=== PATIENT | male | born 1975 | race Two or more races ===

== ENCOUNTER 2021-02-18 21:28 | Emergency (ER) | payer MEDICAID, SELFPAY ==
--- NOTE | ~2021-02-18 | XR_ITS ---
EXAMINATION: XR FOOT, RIGHT CLINICAL INFORMATION: Puncture wound to right foot COMPARISON: None TECHNIQUE: AP, lateral, and oblique views of the right foot. FINDINGS: There has been amputation at the first digit with only the base of the proximal phalanx remaining. Flexion deformities are noted in other toes. On one view it appears that there is a rounded gas bubble present in the tissues distal to the amputated first toe. No bony destructive changes are seen. No retained foreign bodies are seen. XR/XR foot RT min 3V IMPRESSION: Status post amputation of first toe as described above. No retained foreign bodies seen. Please see discussion above regarding possible locule of air.
[2021-02-18 21:44] VITALS: BP 152/82; PULSE 98; RESP 18; TEMP 37.1; O2SAT 97; BMI 39.3
--- NOTE | 2021-02-18 21:55 | ED_ITS ---
HPI - Extremity Injury (Lower) General Chief Complaint: Extremity Injury, Lower Stated Complaint: FOOT INJ Time Seen by Provider: 02/18/21 21:54 Source: patient Mode of arrival: ambulatory Limitations: no limitations History of Present Illness complaint: foot injury Onset (ago): hour(s) (1pm today) Injury: Right: foot Type of Injury: puncture wound Place: home Severity: mild Relieving factors: nothing Exacerbating factors: nothing Context: stepped on nail (went through shoe but there was a partial puncture did not go fully in had small speck of blood on his sock) Other symptoms: none Related Data Previous Rx's Medication Instructions Recorded levofloxacin 500 mg PO DAILY #6 tab 02/18/21 Allergies Allergy/AdvReac Type Severity Reaction Status Date / Time No Known Allergies Allergy Verified 02/18/21 21:43 Review of Systems Review of Systems: Constitutional : No Fever, No Chills, Cardiovascular : No Chest Pain, No SOB Respiratory : No Dyspnea Gastrointestinal : No abdominal pain Musculoskeletal : No Joint Swelling Skin : No rash, positive skin puncture Neuro : No Weakness, No Numbness Psych : No SI/HI PMFSH Past Medical History Attestation statement: The following information was validated with the patient. Medical History (Updated 02/18/21 @ 22:11 by Taryn Barr DO) Amputated great toe Diabetes Hypertension PVD (peripheral vascular disease) Social History Social History (Updated 02/18/21 @ 22:06 by Taryn Barr DO) Patient Tobacco Use Status: Never used Tobacco Advance Directives: No Advance Directives Information Provided: Yes Physical Exam Vital Signs: Vital Signs: Last Vital Signs Temp 98.7 F 02/18/21 21:44 Pulse 98 02/18/21 21:44 Resp 18 02/18/21 21:44 BP 152/82 H 02/18/21 21:44 Pulse Ox 97 02/18/21 21:44 Body Mass Index 39.3 Appearance: Alert. Oriented X3. No acute distress. Eyes: Pupils equal, round and reactive to light. ENT: Pharynx normal. Neck: Normal inspection. Neck supple. CVS: Normal heart rate and rhythm. Pulses normal. Respiratory: No respiratory distress. Breath sounds normal. Abdomen: Soft and nontender. Skin: Skin warm and dry. Normal skin color. Normal skin turgor. Extremities: No lower extremity edema. R great toe amputation site healed, plantar surface 1st MTP joint just inferior small red abrasion noted skin appears intact, pinpoint Neuro: Oriented X 3. No motor deficit. No sensory deficit. MDM - Extremity Injury (Lower) MDM Narrative Medical decision making narrative: 45 yo male with DM, PVD, HTN s/p R great toe amputation here with nail small puncture through sole of shoe - no signs of infection will update Tdap, xray for FB, start on levofloxacin - unknown kidney function - lab ordered Lab Data Result diagrams: 02/18/21 22:21 Labs: Lab Results 02/18/21 Range/Units 22:21 Sodium 141 (135-145) mmol/L Potassium 4.3 (3.3-5.1) mmol/L Chloride 106 (96-108) mmol/L Carbon Dioxide 26 (22-29) mmol/L Anion Gap 13 (12-20) BUN 16 (9-16) mg/dL Creatinine 1.07 (0.5-1.4) mg/dL Estim Creat Clear Calc 125.7 Estimated GFR > 60 Random Glucose 125 H (60-115) mg/dL Calcium 9.6 (8.4-10.2) mg/dL Discharge Plan Discharge Clinical Impression: Puncture wound of foot Qualifiers: Encounter type: initial encounter Laterality: right Qualified Code(s): S91.331A - Puncture wound without foreign body, right foot, initial encounter Patient Disposition: Home, Self-Care Instructions: Tetanus (ED), Puncture Wound in the Foot (ED) Additional Instructions: return to ED for any worsening symptoms or concerns Prescriptions: New levofloxacin 500 mg tablet 500 mg PO DAILY Qty: 6 RF: 0 Referrals: Felicitas Francisco PA-C [Physician Circuit Recorder] - 2 weeks (as needed) Jhonny Armas MD [Physician] - 2 weeks Print Language: Faroese
[2021-02-18] MEDS: levoFLOXacin 500 MG TABLET PO (22:33)
[2021-02-18] MEDS: Diphth,Pertus(ACell),Tet Adult 0.5 ML SYRINGE IM (22:33)
[2021-02-18 22:54] LABS: Anion Gap 13 (12-20); Blood Urea Nitrogen 16 mg/dL (9-16); Calcium 9.6 mg/dL (8.4-10.2); Carbon Dioxide 26 mmol/L (22-29); Chloride 106 mmol/L (96-108); Creatinine Clr Calc Pharmacy 125.7; Estimated Glomerular Filt Rate > 60; Glucose Random 125 mg/dL (60-115); Potassium 4.3 mmol/L (3.3-5.1); Sodium 141 mmol/L (135-145)
== END 2021-02-18 23:28 | disposition home or self-care (01) ==
LOC: HO.ED 22:19
PROVIDERS: Emergency Provider Emergency Medicine; PCP Internal Medicine
DX: S91.331A Puncture wound without foreign body, right foot, initial encounter (principal); S90.811A Abrasion, right foot, initial encounter; W45.0XXA Nail entering through skin, initial encounter; Y93.9 Activity, unspecified; Y92.9 Unspecified place or not applicable; Y99.9 Unspecified external cause status; E11.9 Type 2 diabetes mellitus without complications; I10 Essential (primary) hypertension; Z89.411 Acquired absence of right great toe
CPT/HCPCS: 36415; 73630; 80048; 90471; 90715; 99283; 99284

== ENCOUNTER 2021-07-27 14:53 | Outpatient (REF) | payer MEDICAID, SELFPAY ==
[2021-07-27 16:43] LABS: Binax Internal Control QC Valid; Binax Lot number: 9864; Binax Now Covid-19 Ag Positive (Negative)
== END 2021-07-27 14:54 | disposition home or self-care (01) ==
LOC: HO.LAB 14:53
PROVIDERS: Visit Provider Internal Medicine
DX: Z20.822 Contact with and (suspected) exposure to COVID-19 (principal)
CPT/HCPCS: 36415; C9803

== ENCOUNTER 2021-09-04 10:20 | Emergency (ER) | payer MEDICAID, SELFPAY ==
--- NOTE | ~2021-09-04 | XR_ITS ---
EXAMINATION: XR FOOT, RIGHT CLINICAL INFORMATION: Pain in the toe. COMPARISON: None TECHNIQUE: AP, lateral, and oblique views of the right foot. FINDINGS: There is amputation of right big toe the and the proximal end of the first proximal phalanx. No soft tissue mass or collection seen. However there is soft tissue edema along the stump. No cortical erosion changes or periosteal thickening to suspect any osteomyelitis. There is no suspicion for abscess. Rest of the right foot is unremarkable. The ankle mortise and subtalar joints are normal. XR/XR foot RT min 3V IMPRESSION: The amputation stump first digit beyond the proximal end proximal phalanx. There is no suspicion for osteomyelitis. No bony erosive changes or periosteal elevation suspect osteomyelitis.
[2021-09-04 10:30] VITALS: BP 144/76; PULSE 96; RESP 16; TEMP 36.4; O2SAT 98; BMI 37.5
--- NOTE | 2021-09-04 11:02 | ED_ITS ---
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 and device test engineer Mode of arrival: ambulatory Limitations: no limitations History of Present Illness MD Complaint: extremity pain and extremity swelling Onset (ago): day(s) ( and Saturday) Pain Consistency: now resolved Location: right and toe (great toe amputation site) Quality: aching Radiation: none Relieving factors: nothing Exacerbating factors: other (started after wearing steel toed boot) Associated symptoms: other (states he feels it was swollen) 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) Related Data Previous Rx's Medication Instructions Recorded levofloxacin 500 mg tablet 500 mg PO DAILY #6 tab 02/18/21 Allergies Allergy/AdvReac Type Severity Reaction Status Date / Time No Known Allergies Allergy Verified 09/04/21 10:34 Review of Systems Verdana 4l Review of Systems: Verdana 4d Verdana 4d Constitutional : No Fever, No Chills ENT/Mouth : No Ear Pain, No Hoarseness, No sore throat Eyes: No Eye Pain, No Swelling, No Redness, No Foreign Body Cardiovascular : No Chest Pain, No SOB Respiratory : No Cough, No Dyspnea GastrointestinalGastrointestinal : No Nausea, No Vomiting, No Diarrhea, No abdominal Pain Genitourinary : No Dysuria, No Hematuria Musculoskeletal : positive joint pain, No Myalgias, pos Joint Swelling Skin : No Skin lacerations, No rash Neuro : No Weakness, No Numbness, No Loss of Consciousness, No Dizziness, No Headache Psych : No Anxiety/Panic, No Depression Heme/Lymph: no easy bruising, no Lymphadenopathy Endocrine : No Polyuria, No Polydipsia All other systems reviewed and are negative [facility] Past Medical History Attestation statement: The following information was validated with the patient. Medical History Amputated great toe Diabetes Hypertension PVD (peripheral vascular disease) Social History Social History Patient Tobacco Use Status: Never used Tobacco Advance Directives: No Advance Directives Information Provided: No Physical Exam Verdana 4l Vital Signs: Verdana 4d Verdana 4d Vital Signs: Verdana 4d Verdana 4Bd Last Vital Signs Verdana 4d Powertrain Calibration Engineer New 4d Powertrain Calibration Engineer New 4d Temp 97.6 F 09/04/21 10:30 Powertrain Calibration Engineer New 4d Pulse 96 09/04/21 10:30 Powertrain Calibration Engineer New 4d Resp 16 09/04/21 10:30 BP 144/76 H 09/04/21 10:30 Pulse Ox 98 09/04/21 10:30 BMI result Body Mass Index 37.5 Appearance: Alert. Oriented X3. No acute distress. Eyes: Pupils equal, round and reactive to light. ENT: Pharynx normal. Neck: Normal inspection. Neck supple. CVS: Normal heart rate and rhythm. Pulses normal. Respiratory: No respiratory distress. Breath sounds normal. Abdomen: Soft and non-tender. Skin: Skin warm and dry. Normal skin color. Normal skin turgor. Extremities: No lower extremity edema. No calf ttp R great toe amputation site skin c/d/i no erythema no warmth distal NV intact no fluctuance noted Neuro: Oriented X 3. No motor deficit. No sensory deficit. Course Course Course Narrative: xray negative stable for DC MDM - Extremity (Nontraumatic) MDM Narrative Medical decision making narrative: 46 yo male with hx of PVD, DM, s/p R great toe amputation 2015 for trauma comes in with pain at that site after working last week with [employer] toed boot - area was swollen today very minimal swelling no signs of infection distal NV intact will obtain xray. Gave him gauze to pad toe with. He was supposed to get prosthetic in [place] but never followed up. Will give work note and PCP information as he does not have one here. Discharge Plan Discharge Clinical Impression: Contusion Qualifiers: Encounter type: initial encounter Contusion area: foot Laterality: right Qualified Code(s): S90.31XA - Contusion of right foot, initial encounter Patient Disposition: Home, Self-Care Instructions: Bone Bruise (ED) Additional Instructions: return to ED for any worsening symptoms or concerns Prescriptions: No Action levofloxacin 500 mg tablet 500 mg PO DAILY Qty: 6 0RF Referrals: [facility] [Physician] - 2 days Stand Alone Forms: Work/School Release Print Language: Greenlandic
== END 2021-09-04 13:27 | disposition home or self-care (01) ==
PROVIDERS: Emergency Provider Emergency Medicine; PCP Internal Medicine
DX: S90.31XA Contusion of right foot, initial encounter (principal); X58.XXXA Exposure to other specified factors, initial encounter; E11.9 Type 2 diabetes mellitus without complications; I10 Essential (primary) hypertension; Z89.411 Acquired absence of right great toe; Y93.9 Activity, unspecified; Y92.9 Unspecified place or not applicable; Y99.9 Unspecified external cause status
CPT/HCPCS: 73630; 99283

== ENCOUNTER 2021-12-29 11:45 | Outpatient (REF) | payer MEDICAID, SELFPAY ==
[2021-12-29 12:04] LABS: MANUAL DIFF FLAG NO
[2021-12-29 13:09] LABS: Appearance Urine CLEAR; Color Urine YELLOW; Glucose Urine UA NEG (NEG); Leukocyte Esterase Urine NEG (NEG); Nitrite Urine NEG (NEG); Urine Blood NEG (NEG); Urine Ketones NEG (NEG); Urine Protein NEG (NEG-TRACE)
[2021-12-29 13:10] LABS: Basophils Percent Auto 0.3 % (0-2); Eosinophils Absolute Auto 0.1 X10*3/uL (0.0-0.4); Eosinophils Percent Auto 0.7 % (0-4); Hematocrit 45.7 % (42.0-52.0); Hemoglobin 14.9 g/dl (14.0-18.0); Imm Gran Abs Auto 0.04 X10*3/uL (0.00-0.03); Imm Gran Pct Auto 0.3 % (0.0-0.4); Lymphocytes Percent Auto 22.9 % (20-40); Mean Corpuscular HGB Conc 32.6 g/dl (31.0-36.0); Mean Corpuscular Hemoglobin 30.7 pg (27.0-33.0); Mean Platelet Volume 10.8 fL (9.4-12.4); Monocytes Absolute Auto 0.6 X10*3/uL (0.1-1.2); Monocytes Percent Auto 4.8 % (2-11); Neutrophils Absolute Auto 9.2 x10*3/uL (2.0-8.3); Platelet Count 242 X10*3/uL (160-400); Red Blood Count 4.86 X10*6/uL (4.60-5.80); White Blood Count 12.9 X10*3/uL (4.8-10.8)
[2021-12-29 13:42] LABS: Alanine Aminotransferase 30 U/L (0-40); Albumin Level 4.2 g/dL (3.5-5.0); Alkaline Phosphatase 106 U/L (39-117); Anion Gap 12 (12-20); Aspartate Amino Transferase 16 U/L (5-37); Bilirubin Total 0.7 mg/dL (0.0-1.0); Blood Urea Nitrogen 13 mg/dL (9-16); Carbon Dioxide 27 mmol/L (22-29); Chloride 104 mmol/L (96-108); Cholesterol 220 mg/dL; Estimated Glomerular Filt Rate > 60; Glucose Random 112 mg/dL (60-115); HDL Cholesterol 29 mg/dL; LDL Cholesterol Calculated 157 mg/dl; Potassium 4.3 mmol/L (3.3-5.1); Sodium 139 mmol/L (135-145); Triglycerides 174 mg/dL
[2021-12-29 14:04] LABS: Prostate Specific Antigen Scr 0.48 ng/mL (<0.05-4.0)
== END 2021-12-29 11:46 | disposition home or self-care (01) ==
LOC: HO.LAB 11:45
PROVIDERS: PCP Internal Medicine; Visit Provider Internal Medicine
DX: R35.1 Nocturia (principal); M16.11 Unilateral primary osteoarthritis, right hip; Z12.5 Encounter for screening for malignant neoplasm of prostate
CPT/HCPCS: 36415; 80053; 80061; 81003; 84153; 85025

== ENCOUNTER 2022-01-12 07:09 | Outpatient (REF) | payer MEDICAID, SELFPAY ==
--- NOTE | ~2022-01-12 | XR_ITS ---
EXAMINATION: XR PELVIS CLINICAL INFORMATION: Pain. COMPARISON: None TECHNIQUE: AP view of the pelvis. FINDINGS: The left hip joint space is normal. There are erosive changes and deformity right femoral head likely old avascular necrosis or injury. No fracture is visualized at this time. The SI joints are symmetrical. Rest the pelvis and the soft tissues are normal. XR/XR pelvis 1-2V IMPRESSION: Loss of right hip joint space with deformed right femoral head likely avascular necrosis or old injury. There is no acute fracture seen. Rest the pelvis and left hip are unremarkable.
== END 2022-01-12 07:10 | disposition home or self-care (01) ==
LOC: HO.HOSX 07:09
PROVIDERS: Visit Provider Orthopaedic Surgery
DX: M87.051 Idiopathic aseptic necrosis of right femur (principal); M54.16 Radiculopathy, lumbar region; R10.30 Lower abdominal pain, unspecified
CPT/HCPCS: 72170; 99202

== ENCOUNTER 2022-01-23 13:34 | Outpatient (REF) | payer MEDICAID, SELFPAY ==
[2022-01-23 14:15] LABS: COVID-19 Test Negative (Negative)
== END 2022-01-23 13:35 | disposition home or self-care (01) ==
LOC: HO.LAB 13:34
PROVIDERS: Visit Provider Internal Medicine
DX: Z20.822 Contact with and (suspected) exposure to COVID-19 (principal)
CPT/HCPCS: 87635; C9803

== ENCOUNTER 2022-03-02 12:11 | Outpatient (REF) | payer MEDICAID, SELFPAY ==
--- NOTE | ~2022-03-02 | XR_ITS ---
EXAMINATION: XR LUMBOSACRAL SPINE CLINICAL INFORMATION: Spondylosis without myelopathy or radiculopathy. COMPARISON: None TECHNIQUE: AP and lateral views of the lumbar spine and lateral view of the lumbosacral junction. FINDINGS: Vertebral body heights are normal. At L5-S1, there is a 3 mm retrolisthesis. The remaining lumbar disc spaces are well-maintained. No acute fracture or spondylolisthesis is seen. There is multi-level mild lumbar spondylosis. The posterior elements are intact. The paravertebral soft tissues are unremarkable. XR/XR lumbar spine 2-3V IMPRESSION: 1. There is no acute fracture or spondylolisthesis. 2. There is mild degenerative disc disease at L5-S1. 3. There is multi-level mild lumbar spondylosis.
== END 2022-03-02 12:12 | disposition home or self-care (01) ==
LOC: HO.XRAY 12:11
PROVIDERS: PCP Internal Medicine; Visit Provider Nurse Practitioner Family
DX: M47.816 Spondylosis without myelopathy or radiculopathy, lumbar region (principal); M87.051 Idiopathic aseptic necrosis of right femur; M25.551 Pain in right hip; G89.29 Other chronic pain
CPT/HCPCS: 72100; 99202

== ENCOUNTER 2022-08-29 15:48 | Outpatient (REF) | payer MEDICAID, SELFPAY ==
[2022-08-29 16:53] LABS: Cholesterol 221 mg/dL; HDL Cholesterol 24 mg/dL; Triglycerides 428 mg/dL
== END 2022-08-29 15:49 | disposition home or self-care (01) ==
LOC: HO.LAB 15:48
PROVIDERS: PCP Internal Medicine; Visit Provider Internal Medicine
DX: E78.00 Pure hypercholesterolemia, unspecified (principal); M25.551 Pain in right hip
CPT/HCPCS: 36415; 80061; 86140

== ENCOUNTER 2023-01-14 14:27 | Outpatient (REF) | payer MEDICAID, SELFPAY ==
--- NOTE | ~2023-01-14 | XR_ITS ---
EXAMINATION: XR LUMBOSACRAL SPINE CLINICAL INFORMATION: Low back pain. COMPARISON: 03/02/2022 TECHNIQUE: Three views of the lumbosacral spine. FINDINGS: There are 5 [id number] lumbar vertebra. There is mild scoliosis convex right. There is mild narrowing of the L4-L5 and L5-S1 disc spaces. There is facet arthropathy present on the left at L4-L5 and bilaterally at L5-S1. There is increased sclerosis seen involving the inferior sacroiliac joints, left greater than right. Pedicles appear intact. No acute fracture or spondylolisthesis identified. On provided imaging, I cannot rule out an L5 pars defects. XR/XR lumbar spine 2-3V IMPRESSION: Lumbar spondylosis as described above without evidence of acute fracture or significant spondylolisthesis.
== END 2023-01-14 14:28 | disposition home or self-care (01) ==
LOC: HO.XRAY 14:27
PROVIDERS: PCP Internal Medicine; Visit Provider Internal Medicine
DX: M54.50 Low back pain, unspecified (principal)
CPT/HCPCS: 72100

== ENCOUNTER 2025-02-14 20:36 | Emergency (ER) | payer SELFPAY ==
--- NOTE | ~2025-02-14 | CT_ITS ---
CLINICAL HISTORY: Headache, abnormal sensations left upper and lower CT head without contrast Comparison: None provided Findings: No intracranial mass, midline shift, hydrocephalus, or acute hemorrhage. Mild chronic ischemic white matter disease without volume loss. 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 No acute process in sinuses or mastoids. No acute bony abnormality. Impression: No acute intracranial process This document has been electronically signed by: Alexy Guillermo MD on 02/14/2025 23:40:20
--- NOTE | 2025-02-14 20:45 | ED_ITS ---
HPI - General Adult General Chief complaint: General Medical Stated complaint: headache, tingling/tightness in left of arm/leg Time Seen by Provider: 02/14/25 21:58 Source: patient and home care specialist Mode of arrival: ambulatory Limitations: language barrier History of Present Illness ED Provider: HPI narrative: 49-year-old male presenting with headache, reported tingling of the left arm and left leg along with a headache at 04:30 in the morning, since then has had 3 more episodes of involuntary like movements in his left arm and left leg, headaches and some resolved approximately 2/10, no chest pain reported no acute shortness of breath no cough no neck stiffness no trauma. No visual changes. Related Data Previous Rx's ?Medication ?Instructions ?Recorded levofloxacin 500 mg tablet 500 mg PO DAILY #6 tabs shoe lift 3 cm in right shoe #1 ea 01/16/22 meloxicam 7.5 mg tablet 7.5 mg PO BID #60 tabs 03/02 tizanidine 4 mg tablet 4 mg PO BID PRN muscle spast icity 03/02/22 #40 tabs Allergies Allergy/AdvReac Type Severity Reaction Status Date / Time No Known Allergies Allergy Verified 02/14/25 20:53 Review of Systems 2 Constitutional: Constitutional: Reports as per [facility] Past Medical History Medical History Amputated great toe Diabetes Hypertension PVD (peripheral vascular disease) Social History Social History Alcohol intake: current Alcohol type: beer and hard liquor Patient Tobacco Use Status: Never used Tobacco Smoked in Last 30 Days: Yes Use of substances other than those prescribed or required for medical reasons: No Advance Directives: No Advance Directives Information Provided: No Physical Exam ED Vital Signs: Vital Signs - 24 hr 02/14/25 20:46 02/14/25 21:19 02/14/25 22:26 Temperature 98.6 F 97.7 F 97.7 F Pulse Rate 91 86 82 Respiratory Rate 20 16 16 Blood Pressure 145/84 H 166/85 H 150/76 H Pulse Oximetry 99 97 97 Oxygen Delivery Method Room Air Room Air Room Air BMI result Body Mass Index 36.6 Const Other: * Gen: ?Overall well-appearing patient * HEENT: PERRLA, EOMI, MMM, * Neck: Supple, no LAD * CV: RRR, no obvious murmurs appreciated * Resp: ?No wheezing rales rhonchi no stridor moving air well * Abd: ?Bowel sounds are present, no tenderness no rebound no rigidity * MSK: FROM, strength 5/5 all extremities * Skin: Warm, dry, intact, * Neuro: ?Alert and oriented x3, moving upper and lower extremities symmetrically, no obvious facial asymmetry noted Course Course Course Narrative: Chely Aguilar GREENSKEEPER 02/14 2046 This is a rapid medical exam. Deferred additional HPI, ROS, PE to primary provider. 49 yo male with no known medical history here with complaints of episodes of cramping/involuntary movement/numbness of left arm/leg since 430am. None at this time. Initially had a ZABALA which is now resolved. Will obtain labs. VSS Medical Decision Making Medical Decision Making MDM Narrative: Presenting with headache follow up by some neurologic symptoms has since improved, we will make sure that arm tingling is also not related to ACS, otherwise he is slightly hypotensive but otherwise vital signs are reassuring, no meningismus no fevers to suspect underlying infectious etiology, he is not in the age to suspect temporal arteritis, no evidence for acute item closure glaucoma, we will obtain CT to make sure no underlying spontaneous bleed or mass otherwise anticipating discharge Differential Diagnosis Differential Diagnoses: The differential diagnosis associated with the presentation includes Stroke, migraine, complex migraine, ACS, TIA Admission/Observation Consideration of admission/observation: Escalation of care including admission/observation considered 2022 Emergency Medicine Coding Guide from [email or web address] on 02/14/2025 All calculations should be rechecked by clinician prior to use RESULT SUMMARY: 4 Estimated Level of Service Problems: Moderate (4) Risk: Moderate (4) Data: Extensive (5) NARRATIVE MDM: This patient's problem complexity is Moderate as patient: has a new undiagnosed problem with uncertain prognosis but that could be serious. This patient's risk is Moderate due to: overall presentation requiring evaluation for a potentially Moderate-risk process. This patient's data complexity is Extensive due to: -multiple tests ordered/reviewed -independent interpretation of imaging or EKG INPUTS: Number and Complexity ?> 5 = 4: undiagnosed new problem, uncertain outcome (e) Risk level ?> 3 = Moderate Tests ordered ?> 2 = 2 Tests results reviewed (excluding labs) ?> 2 = 2 Prior external notes reviewed ?> 0 = 0 Assessment requiring and independent historian ?> 0 = No Independent interpretation of tests ?> 1 = Yes Discussed management/test interpretation w/external professional ?> 0 = No Lab Data MDM Lab Attestation statement: I reviewed the patient's lab results. 02/14/25 20:57 02/14/25 20:57 Labs: Lab Results 02/14/25 Range/Units 20:57 WBC 13.8 H (4.8-10.8) X10*3/uL RBC 4.15 L (4.60-5.80) X10*6/uL Hgb 13.5 L (14.0-18.0) g/dl Hct 39.5 L (42.0-52.0) % MCV 95.2 (80.0-98.0) fL MCH 32.5 (27.0-33.0) pg MCHC 34.2 (31.0-36.0) g/dl RDW 12.3 (11.0-16.0) % Plt Count 239 (160-400) X10*3/uL MPV 9.9 (9.4-12.4) fL Immature Gran % (Auto) 0.4 (0.0-0.4) % Neut % (Auto) 61.3 (45-73) % Lymph % (Auto) 30.4 (20-40) % [place] % (Auto) 6.6 (2-11) % Eos % (Auto) 0.9 (0-4) % Baso % (Auto) 0.4 (0-2) % Lymph # (Auto) 4.2 (1.2-4.9) X10*3/uL [place] # (Auto) 0.9 (0.1-1.2) X10*3/uL Eos # (Auto) 0.1 (0.0-0.4) X10*3/uL Baso # (Auto) 0.1 (0.0-0.2) X10*3/uL Abs Immat Gran (auto) 0.05 H (0.00-0.03) X10*3/uL Absolute Neuts (auto) 8.4 H (2.0-8.3) x10*3/uL Absolute Nucleated RBC 0.000 (0.0-0.012) X10*3/uL Nucleated RBC % (auto) 0.0 (0.0-0.2) /100WBC Smear Tech's Comments VERIFIED Sodium 144 (135-145) mmol/L Potassium 4.0 (3.3-5.1) mmol/L Chloride 114 H (96-108) mmol/L Carbon Dioxide 21 L (22-29) mmol/L Anion Gap 13 (12-20) BUN 21 H (9-16) mg/dL Creatinine 1.13 (0.5-1.4) mg/dL Estim Creat Clear Calc 109.9 Estimated GFR > 60 Random Glucose 125 H (60-115) mg/dL Calcium 8.9 D (8.4-10.2) mg/dL Magnesium 2.0 (1.6-2.6) mg/dL Total Bilirubin 0.3 (0.0-1.0) mg/dL Direct Bilirubin 0.1 (0.0-0.5) mg/dL AST 20 (5-37) U/L ALT 28 (0-40) U/L Alkaline Phosphatase 91 (39-117) U/L Total Protein 7.1 (6.5-8.0) g/dL Albumin 4.3 (3.5-5.0) g/dL Independent Interpretation I performed an independent interpretation of an: CT Scan (No obvious intracranial pathology subarachnoid hemorrhage or masses, will await official report) Radiology Impression Discussion of test interpretation with radiology: I have reviewed the radiologist's reading. (Impression: No acute intracranial process) Discharge Plan Discharge Clinical Impression: Tingling of left upper extremity Headache Qualifiers: Headache type: unspecified Headache chronicity pattern: unspecified pattern I ntractability: not intractable Qualified Code(s): R51.9 - Headache, unspecified Patient Disposition: Home, Self-Care Additional Instructions: I am not sure why you had tingling in your left arm and left leg and these abnormal movements, , you did have a chest x-ray that was unremarkable, blood work without any changes that are concerning, and you had a CT of the brain did not did not reveal anything worrisome, I would like you to follow up with the primary care physician for re-evaluation, and I also recommend workup for sleep apnea Any other issues concerns come back to the ER Prescriptions: No Action (DME) shoe lift 3 cm in right shoe See Rx Instructions .Route .MEDSUPPLY Qty: 1 0RF Rx Instructions: As directed levofloxacin 500 mg tablet 500 mg PO DAILY Qty: 6 0RF tizanidine 4 mg tablet 4 mg PO BID PRN (Reason: muscle spasticity) Qty: 40 0RF meloxicam 7.5 mg tablet 7.5 mg PO BID Qty: 60 0RF Rx Instructions: start with 1 pill AM x 2 weeks then take 1 pill AM and 1 pill PM Print Language: Occitan
[2025-02-14 20:46] VITALS: BP 145/84; PULSE 91; RESP 20; TEMP 37; O2SAT 99; BMI 36.6
[2025-02-14 21:11] LABS: Hematocrit 39.5 % (42.0-52.0); Hemoglobin 13.5 g/dl (14.0-18.0); Imm Gran Abs Auto 0.05 X10*3/uL (0.00-0.03); Imm Gran Pct Auto 0.4 % (0.0-0.4); Lymphocytes Absolute Auto 4.2 X10*3/uL (1.2-4.9); MANUAL DIFF FLAG SCAN; Mean Corpuscular HGB Conc 34.2 g/dl (31.0-36.0); Mean Corpuscular Hemoglobin 32.5 pg (27.0-33.0); Mean Corpuscular Volume 95.2 fL (80.0-98.0); NRBC Abs Auto 0.000 X10*3/uL (0.0-0.012); NRBC Pct Auto 0.0 /100WBC (0.0-0.2); Platelet Count 239 X10*3/uL (160-400); Red Blood Count 4.15 X10*6/uL (4.60-5.80); SCAN SMEAR FLAG 1; White Blood Count 13.8 X10*3/uL (4.8-10.8)
[2025-02-14 21:17] LABS: Alanine Aminotransferase 28 U/L (0-40); Albumin Level 4.3 g/dL (3.5-5.0); Alkaline Phosphatase 91 U/L (39-117); Anion Gap 13 (12-20); Aspartate Amino Transferase 20 U/L (5-37); Blood Urea Nitrogen 21 mg/dL (9-16); Calcium 8.9 mg/dL (8.4-10.2); Carbon Dioxide 21 mmol/L (22-29); Chloride 114 mmol/L (96-108); Creatinine Clr Calc Pharmacy 109.9; Estimated Glomerular Filt Rate > 60; Magnesium 2.0 mg/dL (1.6-2.6); Potassium 4.0 mmol/L (3.3-5.1); Sodium 144 mmol/L (135-145); Total Protein 7.1 g/dL (6.5-8.0)
[2025-02-14 21:19] VITALS: BP 166/85; PULSE 86; RESP 16; TEMP 36.5; O2SAT 97
--- NOTE | 2025-02-14 21:21 | PC.NURSE ---
Patient presents to ED c/o involuntary upper and lower left extremity movement. Patient reports having moments of numbness and tingling going down both the entire left arm and leg lasting maybe 10 minutes. The extremities would also intermittently contract and release. Denies numbness and tingling at this time but did report having an episode right before coming to ED. Patient hypertensive 166/85, all other VSS and up to date. Provider in to see patient. Plan of care on going
--- NOTE | 2025-02-14 22:20 | ECG_ITS ---
Test Reason : ARM TINGLING Blood Pressure : */* mmHG Vent. Rate : 80 BPM Atrial Rate : 80 BPM P-R Int : 138 ms QRS Dur : 96 ms QT Int : 388 ms P-R-T Axes : 48 20 2 degrees QTcB Int : 447 ms Normal sinus rhythm Nonspecific T wave abnormality Abnormal ECG No previous ECGs available Referred By: Kiko Marte Electronically Signed By: Denton Mandujano
[2025-02-14 22:26] VITALS: BP 150/76; PULSE 82; RESP 16; TEMP 36.5; O2SAT 97
[2025-02-15] VITALS: BP 148/71; PULSE 80; RESP 19; TEMP 36.5; O2SAT 99
[2025-02-15 00:38] VITALS: BP 148/71; PULSE 80; RESP 19; TEMP 36.5; O2SAT 99
== END 2025-02-15 00:40 | disposition home or self-care (01) ==
PROVIDERS: Nurse Practitioner Family; Emergency Provider Emergency Medicine; PCP Internal Medicine
DX: R51.9 Headache, unspecified (principal); R20.2 Paresthesia of skin; R94.31 Abnormal electrocardiogram [ECG] [EKG]; I95.9 Hypotension, unspecified; Z79.899 Other long term (current) drug therapy
CPT/HCPCS: 36415; 70450; 80048; 80076; 83735; 85025; 93005; 99284

== ENCOUNTER → 2025-02-14 22:20 | Outpatient (BNV) | payer SELFPAY | PROVIDERS: Emergency Provider Emergency Medicine; PCP Internal Medicine; Visit Provider Internal Medicine Cardiovascular Disease | DX: R94.31 Abnormal electrocardiogram [ECG] [EKG] (principal); R20.2 Paresthesia of skin | CPT/HCPCS: 93010 ==

== ENCOUNTER → 2025-02-14 22:20 | Outpatient (BNV) | payer SELFPAY | PROVIDERS: Emergency Provider Emergency Medicine; PCP Internal Medicine; Visit Provider Radiology Diagnostic Radiology | DX: R51.9 Headache, unspecified (principal); R20.2 Paresthesia of skin | CPT/HCPCS: 70450 ==

== ENCOUNTER 2025-02-25 09:43 | Inpatient (IN) | payer MEDICAID, SELFPAY ==
--- NOTE | 2025-02-25 | ECG_ITS ---
Test Reason : dizziness Blood Pressure : */* mmHG Vent. Rate : 75 BPM Atrial Rate : 75 BPM P-R Int : 144 ms QRS Dur : 98 ms QT Int : 418 ms P-R-T Axes : 33 5 -2 degrees QTcB Int : 466 ms Normal sinus rhythm Nonspecific T wave abnormality Prolonged QT Abnormal ECG When compared with ECG of 14-Feb-2025 22:41, No significant change was found Referred By: Jordan Al Electronically Signed By: CHANA MAHARAJ MD
--- NOTE | ~2025-02-25 | CT_ITS ---
EXAMINATION: CT ANGIOGRAM HEAD AND NECK CLINICAL INFORMATION: Acute CVA in the posterior right frontal lobe and right basal ganglion COMPARISON: MRI from yesterday.. TECHNIQUE: Noncontrast axial imaging of the head was performed. This was followed by test bolus sequences and head and neck intravenous bolus administration of 70mL of Omnipaque 350. Helical imaging was performed in the axial plane from the aortic arch to the skull vertex. The data was processed at the cardiac cath lab radiology technologist's workstation for generation of MIP sequences. Angled MIPs and volume rendered reformatted images were also generated at an offline 3D workstation. Stenoses are assessed in accordance with NASCET criteria unless otherwise indicated. This CT examination was performed using dose optimization techniques as appropriate, variously including the following: *Automated exposure control *Adjustment of mA and/or kV according to patient size (this includes techniques or standardized protocols for targeted exams where dose is matched to indication/reason for exam; i.e. extremities or head) *Use of iterative reconstruction technique DLP: 1789 mGy*cm FINDINGS: NONCONTRAST HEAD CT: Low-attenuation is visible in the right basal ganglion and posterior right frontal lobe. There is chronic encephalization the medial right occipital lobe. There is no intracranial hemorrhage. NECK CTA: -AORTIC ARCH: Normal in caliber. Three-vessel branching pattern. -GREAT VESSEL ORIGINS: Widely patent. No stenosis. -RIGHT COMMON CAROTID ARTERY: Normal in course and caliber to the level of the bifurcation. -CERVICAL RIGHT INTERNAL CAROTID ARTERY: Normal opacification without significant stenosis or occlusion. Mild hard plaque is present at the medial wall of the carotid bulb. -LEFT COMMON CAROTID ARTERY: Normal in course and caliber to the level of the bifurcation. -CERVICAL LEFT INTERNAL CAROTID ARTERY: Normal opacification without focal stenosis or occlusion. . -CERVICAL RIGHT VERTEBRAL ARTERY: Codominant. Normal in course and caliber into the skull base. -CERVICAL LEFT VERTEBRAL ARTERY: Filling of the left vertebral artery becomes threadlike through a short segment between mid C6 and mid C7. The diameter decreases to at least 1 mm. The more distal opacified artery measures 3 mm diameter consistent with at least 67% stenosis. OTHER, SOFT TISSUES: -No lymphadenopathy or mass. No abnormal fluid collection or soft tissue swelling. -Normal thyroid. -Imaged superior mediastinal structures normal. -Imaged lung apices clear. CTA OF THE BRAIN: -INTRACRANIAL INTERNAL CAROTID ARTERIES: No focal stenosis or occlusion. -RIGHT ANTERIOR CEREBRAL ARTERY: Normal A1 segment.. Normal arborization of the distal segments. -LEFT ANTERIOR CEREBRAL ARTERY: Normal A1 segment.. Normal arborization of the distal segments. -ANTERIOR COMMUNICATING ARTERY: Normal. -RIGHT MIDDLE CEREBRAL ARTERY: Demonstrates segment decreases to a diameter of 1.1 mm. More distally the lumen diameter is 2.3 mm consistent with 55% short segment stenosis. Normal bifurcation. Normal arborization of the distal segments. -LEFT MIDDLE CEREBRAL ARTERY: Normal M1 segment of the MCA without focal stenosis or occlusion. Normal bifurcation. Normal arborization of the distal segments. -RIGHT VERTEBRAL ARTERY V4: Normal in course and caliber. Normal PICA branch. -LEFT VERTEBRAL ARTERY V4: Normal in course and caliber. Normal PICA branch. -BASILAR ARTERY: Normal without focal stenosis or occlusion. Normal appearance of the proximal superior cerebellar arteries. Normal basilar tip. -RIGHT POSTERIOR CEREBRAL ARTERY: Normal P1 segment. Normal opacification of the distal PHOTOGRAVURE PRESS OPERATOR segments. -LEFT POSTERIOR CEREBRAL ARTERY: The P1 segment is diminutive. origin of the PHOTOGRAVURE PRESS OPERATOR with robust opacification of the posterior communicating artery. Normal opacification of the distal PHOTOGRAVURE PRESS OPERATOR segments. -POSTERIOR COMMUNICATING ARTERIES: Thread like. Normal opacification of the superior sagittal, straight, transverse, and right sigmoid sinus. There is lack of filling of the left sigmoid sinus. CT/CT angio head neck IMPRESSION: NONCONTRAST HEAD CT: Acute/subacute posterior right frontal and right basal ganglia infarct. CTA NECK: There is a hemodynamically significant stenosis of left vertebral artery at the level of C6-7 measuring at least 67%. CTA HEAD: Short focal 55% stenosis of the M1 division of the right MCA. Dr. Olsen notified via [place] Lack of filling of the left sigmoid sinus of uncertain significance. Contrast was injected from the left side and there is retrograde flow of contrast up the the mid left internal jugular vein which could be restricting outflow on that side. If there is concern for thrombosis, consider dedicated head CT venogram. Electronically signed by: Reymundo Henderson MD 02/26/2025 03:20 PM EDT
--- NOTE | ~2025-02-25 | US_ITS ---
EXAMINATION: US EXTRACRANIAL CAROTID DUPLEX, BILATERAL CLINICAL INFORMATION: CVA COMPARISON: None available. TECHNIQUE: Real-time ultrasound and Doppler techniques (integrating B-mode 2-D vascular images, Doppler spectral analysis and color-flow Doppler imaging) were utilized to interrogate the extracranial carotid arteries, the vertebral arteries and proximal subclavian arteries bilaterally. The degree of stenosis is determined by criteria similar to NASCET. FINDINGS: Right Side: 1. There is mild atherosclerotic plaque seen in the bifurcation/proximal ICA region. 2. The common carotid artery PSV proximally is 141 cm/s and distally 66 cm/s. 3. The proximal internal carotid artery velocities are 58 cm/s systolic and 20 cm/s diastolic. 4. The proximal external carotid artery PSV is 79 cm/s. 5. The vertebral artery shows antegrade flow. 6. The subclavian artery waveforms are triphasic. ICA:CCA = 0.4 Left Side: 1. There is no atherosclerotic plaque seen in the bifurcation/proximal ICA region. 2. The common carotid artery PSV proximally is 140 cm/s and distally 90 cm/s. 3. The proximal internal carotid artery velocities are 60 cm/s systolic and 19 cm/s diastolic. 4. The proximal external carotid artery PSV is 93 cm/s. 5. The vertebral artery shows antegrade flow. 6. The subclavian artery waveforms are biphasic. ICA:CCA = 0.4 US/US carotid duplex BI IMPRESSION: 1. RIGHT: No hemodynamically significant stenosis. Mild plaque is present in the carotid bulb. 2. LEFT: No hemodynamically significant stenosis. Electronically signed by: Reymundo Henderson MD 02/25/2025 04:36 PM EDT
--- NOTE | ~2025-02-25 | CT_ITS ---
EXAMINATION: CT HEAD WITHOUT IV CONTRAST HISTORY: Left facial droop x1 week, rule out stroke. TECHNIQUE: Unenhanced helical CT of the head was performed per standard departmental protocol. Coronal and sagittal reformats of the head were also evaluated. One or more of the following techniques was used for dose reduction: Automated exposure control, adjustment of the mA and/or kV according to patient size, use of iterative reconstruction technique. DLP: 731 mGy-cm COMPARISON: Comparison is made with the prior examination dated 02/14/2025. FINDINGS: BRAIN: There is new geographic hypodensity in the right frontal lobe and right basal ganglia, consistent with an evolving infarct. Again seen is an old infarct in the right occipital lobe and an old lacunar infarct in the left basal ganglia. There is no mass effect or midline shift. No intra- or extra-axial fluid collections are identified. SINUSES: The visualized paranasal sinuses are clear. The mastoid air cells and middle ear cavities are well pneumatized. ORBITS: The visualized orbits are unremarkable. BONES/SOFT TISSUES: The extracranial soft tissues are unremarkable. The calvarium is intact. No suspicious lytic or sclerotic lesions. CT/CT head/brain wo IV con IMPRESSION: Evolving right frontal and right basal ganglia infarcts. These findings were discussed with Dr. Al in the emergency room on 02/25/2025 at 11:21 AM. Electronically signed by: Solomon Nicholas MD 02/25/2025 11:20 AM EDT
--- NOTE | ~2025-02-25 | MR_ITS ---
CLINICAL HISTORY: cva MRI Brain Without Contrast: Comparison: CT 02/25/2025. CT 02/14/2025. Findings: There is restricted diffusion with acute core infarction involving right basal ganglia, right sylvian fissure subcortical white matter and a 3 cm segment of right frontal lobe cortex and subcortical white matter. Mass effect: No shift in midline structures Intracranial bleeding: No intraparenchymal bleeding or abnormal extra axial blood fluid collections Pituitary: Normal in size Visualized sinuses: There is fluid filling inferior left maxillary sinus floor Orbital structures: Unremarkable Calvarium: There is no abnormal meningeal thickening or nodularity Impression: Acute infarction in right MCA territory Left maxillary sinusitis. This document has been electronically signed by: Javier Atwood MD on 02/25/2025 18:03:25
[2025-02-25 09:46] VITALS: BP 158/76; PULSE 84; RESP 17; TEMP 36.8; O2SAT 97; BMI 35.1
[2025-02-25 10:00] VITALS: BP 133/74; PULSE 66; RESP 21; TEMP 36.7; O2SAT 97
--- NOTE | 2025-02-25 10:02 | ED_ITS ---
HPI - Neuro Symptoms/Deficit General Chief Complaint: Neuro Symptoms/Deficit Stated Complaint: Tingling/numbness L arm Time Seen by Provider: 02/25/25 10:02 Source: patient Mode of arrival: ambulatory Limitations: language barrier ([place] speaking only, [facility] [place] sales and service supervisor used[place] History of Present Illness ED Provider: Dr. Jordan Al HPI Narrative: 49-year-old male with a history of diabetes mellitus, hypertension, peripheral vascular disease who presents emergency department for evaluation of left facial droop, difficulty talking x1 week. The patient was seen in the emergency department on 02/14/2025 for evaluation of headache, tingling in his toes of the left arm , left leg and involuntary movement of his left upper extremity.. Patient's workup included a CT scan of the brain which was unremarkable at that time. Patient states over the last week he has had increased difficulty with speaking in his noticed increased drooling. His friends noticed that he had a change in his face and he had a slight facial droop. Patient states the left side of his face is numb. He denied weakness in his upper and lower extremities. He denied recurrence of his headache. Related Data Previous Rx's ?Medication ?Instructions ?Recorded levofloxacin 500 mg tablet 500 mg PO DAILY #6 tabs shoe lift 3 cm in right shoe #1 ea 01/16/22 meloxicam 7.5 mg tablet 7.5 mg PO BID #60 tabs 03/02 tizanidine 4 mg tablet 4 mg PO BID PRN muscle spast icity 03/02/22 #40 tabs Allergies Allergy/AdvReac Type Severity Reaction Status Date / Time No Known Allergies Allergy Verified 02/25/25 09:48 [facility] Past Medical History Medical History Amputated great toe Diabetes Hypertension PVD (peripheral vascular disease) Social History Social History Unable to assess alcohol history related to: Unknown Alcohol intake: current Alcohol type: beer and hard liquor Patient Tobacco Use Status: Never used Tobacco Smoked in Last 30 Days: No Use of substances other than those prescribed or required for medical reasons: Unknown Advance Directives: No Advance Directives Information Provided: Yes Do you have a plan to hurt others: No Plan Physical Exam 2 Vital Signs: Vital Signs: Last Vital Signs Temp 98.0 F 02/25/25 12:00 Pulse 72 02/25/25 12:00 Resp 14 02/25/25 12:00 BP 134/90 H 02/25/25 12:00 Pulse Ox 97 02/25/25 12:00 O2 Del Method Room Air 02/25/25 12:00 BMI result Body Mass Index 35.1 Exam: General: Awake, alert in no distress Head: Normocephalic, atraumatic EENT: PERRL, Lids normal, sclera normal, conjunctiva normal, nose normal , ears normal, throat without erythema or exudates Neck: Supple, no adenopathy Lung: breath sounds symmetric, no wheezing, rales or rhonchi Chest: symmetric movement, nontender Heart: regular rate and rhythm, normal S1, S2 no murmurs or rubs Abdomen: soft, non-tender, nondistended, normal bowel sounds Back: no vertebral tenderness, no CVAT Extremities: no deformities, moves all extremities symmetrically Neuro: General: ?Awake, alert, oriented, normal speech Cranial nerves: ?Cranial nerves left facial droop sparing forehead Strength: ?Moves all extremities symmetrically, strength 5/5 Cerebellar: ?Good syqpfi-am-[id number]-to-finger, good rapid finger movement, normal heel to bacon Psych: Pleasant, cooperative Medical Decision Making Medical Decision Making MDM Narrative: 49-year-old male with a history of diabetes mellitus, hypertension, peripheral vascular disease who presents emergency department for evaluation of left facial droop, difficulty talking x1 week. The patient was seen in the emergency department on 02/14/2025 for evaluation of headache, tingling in his toes of the left arm , left leg and involuntary movement of his left upper extremity.. Patient's workup included a CT scan of the brain which was unremarkable at that time. Patient states over the last week he has had increased difficulty with speaking in his noticed increased drooling. His friends noticed that he had a change in his face and he had a slight facial droop. Patient states the left side of his face is numb. He denied weakness in his upper and lower extremities. He denied recurrence of his headache.Vital signs revealed an elevated blood pressure otherwise unremarkable. Physical examination did reveal left facial droop which spares the forehead. NIH stroke scale was 1 Differential diagnosis: ?Includes but is not limited to Kaye's palsy, stroke, intracranial bleed, anemia, electrolyte abnormalities Course: 13:24 My independent interpretation patient's laboratory evaluation is as follows: CBC was normal. Glucose elevated 122. CT scan of the brain without IV contrast was concerning for an evolving right frontal and right basal ganglion infarct. Given this finding, the patient will need to be admitted for further workup of his stroke. Patient was able to pass a swallow test and he was given aspirin 324 mg orally. Given the fact that these symptoms are 1-week-old, the patient is not a TNK candidate. 13:44 I did discuss the patient's presentation over tiger text with the covering hospitalist, Dr. Olsen and the patient will be admitted for further treatment. Admission/Observation Consideration of admission/observation: Escalation of care including admission/observation considered (Yes) Consult Healthcare Provider Management of the patient was discussed with: Hospitalist Lab Data MDM Lab Attestation statement: I reviewed the patient's lab results. 02/25/25 10:16 02/25/25 10:16 Labs: Lab Results 02/25/25 Range/Units 10:16 WBC 10.2 (4.8-10.8) X10*3/uL RBC 4.74 (4.60-5.80) X10*6/uL Hgb 15.0 (14.0-18.0) g/dl Hct 44.6 (42.0-52.0) % MCV 94.1 (80.0-98.0) fL MCH 31.6 (27.0-33.0) pg MCHC 33.6 (31.0-36.0) g/dl RDW 12.0 (11.0-16.0) % Plt Count 246 (160-400) X10*3/uL MPV 10.2 (9.4-12.4) fL Immature Gran % (Auto) 0.2 (0.0-0.4) % Neut % (Auto) 67.2 (45-73) % Lymph % (Auto) 26.2 (20-40) % [place] % (Auto) 5.8 (2-11) % Eos % (Auto) 0.3 (0-4) % Baso % (Auto) 0.3 (0-2) % Lymph # (Auto) 2.7 (1.2-4.9) X10*3/uL [place] # (Auto) 0.6 (0.1-1.2) X10*3/uL Eos # (Auto) 0.0 (0.0-0.4) X10*3/uL Baso # (Auto) 0.0 (0.0-0.2) X10*3/uL Abs Immat Gran (auto) 0.02 (0.00-0.03) X10*3/uL Absolute Neuts (auto) 6.8 (2.0-8.3) x10*3/uL Absolute Nucleated RBC 0.020 H (0.0-0.012) X10*3/uL Nucleated RBC % (auto) 0.2 (0.0-0.2) /100WBC Sodium 144 (135-145) mmol/L Potassium 3.9 (3.3-5.1) mmol/L Chloride 110 H (96-108) mmol/L Carbon Dioxide 24 (22-29) mmol/L Anion Gap 14 (12-20) BUN 15 (9-16) mg/dL Creatinine 0.88 (0.5-1.4) mg/dL Estim Creat Clear Calc 138.1 Estimated GFR > 60 Random Glucose 122 H (60-115) mg/dL Calcium 9.3 (8.4-10.2) mg/dL Total Bilirubin 0.8 (0.0-1.0) mg/dL AST 22 (5-37) U/L ALT 30 (0-40) U/L Alkaline Phosphatase 103 (39-117) U/L Troponin I High Sens < 2.7 (<3.5-35.0) ng/L Total Protein 7.2 (6.5-8.0) g/dL Albumin 4.6 (3.5-5.0) g/dL Independent Interpretation I performed an independent interpretation of an: EKG Interpretation: My independent interpretation patient's 12 EKG done on 02/25/2025 at 10:06 hours is as follows: Normal sinus rhythm with a rate of 75, normal [place] interval, QRS duration QTC interval, no ST segment elevation, no ST segment depression, no PACs, no PVCs Chronic Conditions Patient?s care impacted by: Diabetes and Hypertension NIH Stroke Scale Internal: Initial- Upon Arrival Level of Consciousness: Alert Level of Consciousness Questions: Answers both questions correctly Level of Consciousness Commands: Performs both tasks correctly Best Gaze: Normal Visual: No visual loss Facial Palsy: Minor paralyis Motor Arm (Right): No drift Motor Arm (Left): No drift Motor Leg (Right): No drift Motor Leg (Left): No drift Limb Ataxia: Absent Sensory: Normal Best Language: No aphasia Dysarthia: Normal Extinction and Inattention: No abnormality Score: 1 Critical Care Time Critical Care Time Critical Care Time: Yes Total Critical Care Time: 35 Attestation: Critical Care: The patient was critically ill with a high probability of imminent or life threatening deterioration. I spent greater than 30 minutes of discontinuous time evaluating the patient,delivering critical care at the bedside, discussing and evaluating pertinent data with consultants. Critical care time does not include time spent performing separately billable procedures or teaching. Total time spent performing critical care was 35 minutes. Discharge Plan Discharge Print Language: B[place]ian
--- NOTE | 2025-02-25 10:21 | PC.NURSE ---
Pt with equal smile, ROM/sgtrength all extremities; reports some tingling L arm; pt's voice noticeably muffled and pt states it feels like something is in the throat ; unable to evaluate airway as pt gags when tongue depressor is used; no wheezin/drooling noted or reported; pt denies SOB; palpable swollen lymph node to R submandibular area; pt denies fevers or allergies; awaiting MD [place]
[2025-02-25 10:23] LABS: MANUAL DIFF FLAG NO
[2025-02-25 10:28] LABS: Hematocrit 44.6 % (42.0-52.0); Hemoglobin 15.0 g/dl (14.0-18.0); Imm Gran Abs Auto 0.02 X10*3/uL (0.00-0.03); Imm Gran Pct Auto 0.2 % (0.0-0.4); Lymphocytes Absolute Auto 2.7 X10*3/uL (1.2-4.9); Mean Corpuscular HGB Conc 33.6 g/dl (31.0-36.0); Mean Corpuscular Hemoglobin 31.6 pg (27.0-33.0); Mean Corpuscular Volume 94.1 fL (80.0-98.0); NRBC Abs Auto 0.020 X10*3/uL (0.0-0.012); NRBC Pct Auto 0.2 /100WBC (0.0-0.2); Platelet Count 246 X10*3/uL (160-400); Red Blood Count 4.74 X10*6/uL (4.60-5.80); White Blood Count 10.2 X10*3/uL (4.8-10.8)
[2025-02-25 10:42] LABS: Alanine Aminotransferase 30 U/L (0-40); Albumin Level 4.6 g/dL (3.5-5.0); Alkaline Phosphatase 103 U/L (39-117); Anion Gap 14 (12-20); Aspartate Amino Transferase 22 U/L (5-37); Blood Urea Nitrogen 15 mg/dL (9-16); Calcium 9.3 mg/dL (8.4-10.2); Carbon Dioxide 24 mmol/L (22-29); Chloride 110 mmol/L (96-108); Creatinine Clr Calc Pharmacy 138.1; Estimated Glomerular Filt Rate > 60; Potassium 3.9 mmol/L (3.3-5.1); Sodium 144 mmol/L (135-145); Total Protein 7.2 g/dL (6.5-8.0)
[2025-02-25 10:56] LABS: Troponin-I High Sensitivity < 2.7 ng/L (<3.5-35.0)
--- OUTSIDE RECORDS SUMMARY | 2025-02-25 11:05 | XMS_ITS | Patient Health Record ---
Author [facility] Address [address] [place] [address] Care Team Providers Care Supervisor Diagnostic Name Role Phone Edgar Fraser Primary Care Provider Willian Matt Unavailable Reason For Referral No Information Social History Social History Drugs/Alcohol: Social Info Question Answer Notes Alcohol Screen Did you have a drink containing alcohol in the past year? No Points 0 Interpretation Negative Plan Of Treatment No Information
--- OUTSIDE RECORDS SUMMARY | 2025-02-25 11:05 | XMS_ITS | Clinical Summary ---
Author Organization [employer] Address [address] [place] [address] Care Team Providers Care Hadoop Infrastructure Architect Name Role Phone Unavailable Primary Care Provider Unavailabl e Encounters Date Type Department Care Team Description 02/25/2025 Travel from Last 3 Months Social History Tobacco Use Types Packs/Day Years Used Date Smoking Tobacco: Never Assessed Sex and Gender Information Value Date Recorded Sex Assigned at Male 05/28/2022 10:40 AM EDT Legal Sex Male 10:40 AM EDT Gender Identity Male 05/28/2022 10:40 AM EDT Sexual Orientation Straight 05/28/2022 10 :40 AM EDT Plan of Treatment Health Maintenance Due Date Last Done Comments CT Colonography 1975 Colonoscopy 1975 Colorectal Cancer Screening 1975 Depression Screening 1975 FIT DNA/Cologuard 1975 FIT 1975 FOBT 1975 Lipid Panel 1975 Sigmoidoscopy 1975 Disability Screening 1975 Alcohol/Substance Use Screening 1987 Tobacco Screening 1987 Family Planning (PISQ) 1990 DTaP/Tdap/Td Vaccines (1 - Tdap) 1994 Hepatitis B Vaccines (1 of 3 - 19+ 3-dose series) 1994 COVID-19 Vaccine (3 - 2023-2 5 season) 2024 04/03/2022, 03/05/2022 Influenza Vaccine (#1) 2025 Zoster Vaccines (1 of 2) 2025 RSV Patients and Patients Aged 60 years or older (1 - 1-dose 75+ series) 2050 HIB Vaccines Aged Out No longer eligi ble based on patient's age to complete this topic HPV Vaccines Aged Out No longer eligi ble based on patient's age to complete this topic Hepatitis A Vaccines Aged Out No long er eligible based on patient's age to complete this topic IPV Vaccines Aged Out No longer eligi ble based on patient's age to complete this topic Meningococcal B Vaccine Aged Out No l onger eligible based on patient's age to complete this topic Meningococcal Vaccine Aged Out No oz brandt eligible based on patient's age to complete this topic Pneumococcal Vaccine: Pediatrics (0 to 5 Years) and At-Risk Patients (6 to 49) Years Aged Out No longer eligible b ased on patient's age to complete this topic RSV under 20 months Aged Out No longe r eligible based on patient's age to complete this topic Rotavirus Vaccines Aged Out No longer eligible based on patient's age to complete this topic
[2025-02-25 12:00] VITALS: BP 134/90; PULSE 72; RESP 14; TEMP 36.7; O2SAT 97
--- NOTE | 2025-02-25 13:47 | P.HPHOSP_ITS ---
History of Present Illness Date of Service: 02/25/25 Chief Complaint: speech difficulty This has a 49-year-old male with pertinent history of peripheral vascular disease status post toe amputation, prediabetes, currently not on home prescription medications who presents to the emergency department for evaluation of difficulty with speech and facial droop. Patient states he 1st noticed his symptoms 1 week ago. This has never happened before. Patient states that his friends noticed that he had facial droop. He also had difficulty with speech. Denies changes in vision. No extremity weakness. No trouble swallowing. No headache at this time. No fever, chills, chest pain, palpitations, shortness of breath, abdominal pain, changes in urinary or bowel habits. No history of irregular heart rhythm He was seen in the ER on 02/14 for evaluation of headache, tingling in his toes, left arm, left leg and involuntary movement of left upper extremity. Patient's CTA head at that time was without any acute abnormality. In the emergency department, CTA head with evolving right frontal and right basal ganglia infarcts. Review of Systems 2 Constitutional: Constitutional: Reports no additional constitutional complaints Cardiovascular: Cardiovascular: Reports no additional cardiovascular complaints Respiratory: Respiratory: Reports no additional respiratory complaints Gastrointestinal: Gastrointestinal: Reports no additional gastrointestinal complaints Genitourinary: Genitourinary: Reports no additional male genitourinary complaints Neurologic: Reports Abnormal speech present [facility] Medical History Amputated great toe PVD (peripheral vascular disease) Diabetes Hypertension Pertinent family history: No family history of early CAD Social History Unable to assess alcohol history related to: Unknown Alcohol intake: current Alcohol type: beer and hard liquor Patient Tobacco Use Status: Never used Tobacco Smoked in Last 30 Days: No Use of substances other than those prescribed or required for medical reasons: Unknown Advance Directives: No Advance Directives Information Provided: Yes Do you have a plan to hurt others: No Plan Meds Allergies Allergy/AdvReac Type Severity Reaction Status Date / Time No Known Allergies Allergy Verified 02/25/25 09:48 Physical Exam 2 Vital Signs and Narrative: Vital Signs: Last Vital Signs Temp 98.0 F 02/25/25 12:00 Pulse 72 02/25/25 12:00 Resp 14 02/25/25 12:00 BP 134/90 H 02/25/25 12:00 Pulse Ox 97 02/25/25 12:00 O2 Del Method Room Air 02/25/25 12:00 BMI result Body Mass Index 35.1 Middle-aged male lying in bed in no distress Neck supple, no JVD Regular rate and rhythm, S1-S2 heard Regular breath sounds bilaterally, no wheezing or crackles appreciated Abdomen soft nontender, no guarding, no rigidity Patient is awake, alert and oriented to self, place, time and person, facial droop seen, no pronator drift, strength 5/5 in bilateral upper and lower extremity, no nystagmus, Psych: Normal mood No pedal edema Neuro: Speech: Abnormal speech present Results Labs 02/25/25 10:16 02/25/25 10:16 Labs: Laboratory Results - last 24 hr 02/25/25 10:16 MCV 94.1 MCH 31.6 MCHC 33.6 RDW 12.0 Plt Count 246 MPV 10.2 Immature Gran % (Auto) 0.2 Neut % (Auto) 67.2 Lymph % (Auto) 26.2 [place] % (Auto) 5.8 Eos % (Auto) 0.3 Baso % (Auto) 0.3 Lymph # (Auto) 2.7 [place] # (Auto) 0.6 Eos # (Auto) 0.0 Baso # (Auto) 0.0 Abs Immat Gran (auto) 0.02 Absolute Neuts (auto) 6.8 Absolute Nucleated RBC 0.020 H Nucleated RBC % (auto) 0.2 Anion Gap 14 Estim Creat Clear Calc 138.1 Estimated GFR > 60 Random Glucose 122 H Calcium 9.3 Total Bilirubin 0.8 AST 22 ALT 30 Alkaline Phosphatase 103 Total Protein 7.2 Albumin 4.6 Imaging Radiologist's Impressions: Impressions Head CT 02/25/25 10:45 IMPRESSION: Evolving right frontal and right basal ganglia infarcts. These findings were discussed with Dr. Al in the emergency room on 02/25/2025 at 11:21 AM. Electronically signed by: Solomon Nicholas MD 02/25/2025 11:20 AM EDT RP Assessment and Plan (1) Stroke: Qualifiers: Laterality of affected vessel: right Status: Acute Plan This has a 49-year-old male with pertinent history of prediabetes, currently not on home prescription medications who presents to the emergency department for evaluation of difficulty with speech and facial droop. #. Acute right frontal and right basal ganglia infarct: Noted on CT head. Will admit patient with cardiac monitoring. Obtaining MRI to delineate underlying anatomy. Obtaining transthoracic echocardiogram, A1c and lipid panel. Carotid ultrasound pending. Consulted Neurology, appreciate assistance. Initiated aspirin and high-intensity statin. Med rec pending DVT prophylaxis: Lovenox Full code Admit as inpatient and will require two night minimum hospital stay for evaluation and management CVA (as above), which is not possible in a lesser acute setting. Specialist consult pending Quality Stroke Does the patient have a stroke diagnosis?: No VTE Prior VTE?: No VTE Risk Level:: Medical - moderate - high VTE Device Contraindication: Treatment Not Indicated VTE Drug Contraindication: N/A - Med Ordered
--- NOTE | 2025-02-25 15:21 | PHA.MEDREC ---
Addendum entered by Jose Guadalupe Pelaez RP 02/25/25 15:45: Reviewed by [facility] Original Note: Pharmacy Consult ? Medication Reconciliation Pharmacy has completed the medication reconciliation. Spoke with patient, utilizing interpret, and he confirmed he is not taking any medications (OTC or prescription) at this time.
[2025-02-25 16:26] VITALS: BP 159/80; PULSE 67; RESP 17; TEMP 36.4; O2SAT 99
--- NOTE | 2025-02-25 18:02 | PC.NURSE ---
physician neonatology at bedside for assessment. md informed of critical MRI result.
[2025-02-25] MEDS: Nicotine 14 MG PATCH.TD24 TRANSDERMA (18:34)
[2025-02-25 19:22] VITALS: BP 158/73; PULSE 68; RESP 18; TEMP 36.7; O2SAT 98
[2025-02-26] VITALS (7 sets, daily range): BP systolic 120–141; BP diastolic 71–90; PULSE 64–74; RESP 18–20; TEMP 36.2–36.7; O2SAT 94–100
--- NOTE | 2025-02-26 07:00 | CA_ITS ---
Transthoracic Echocardiogram Patient (Last, First, Middle): Chinedu Chambers D Gender: Male Date of : 1975 Age: 49 Procedure Date: 02/26/2025 Procedure Type: Transthoracic Echocardiogram Location[place] [facility] [place] Height: 185.42 cm Weight: 120.2 kg BSA: 2.43 m2 Heart Rate: 69 bpm BP: 120 / 82 mmHg Comedian: DAVID Alves MD: Maribeth Olsen MD Area Field Worker: Pepito Rosas MD Symptoms: CVA Study Quality: Adequate ECG Rhythm: Sinus Conclusions: - 1. Normal LV ejection fraction 55-60% 2. Normal cardiac valve with a Dopplers 3. Normal RV systolic pressure 4. Mildly dilated ascending aorta at 3.8 cm 5. No gross pericardial effusion Findings Left Ventricle Normal left ventricular size, thickness, and systolic function. The visually estimated ejection fraction is between 55-60%. Spectral Doppler is indicative of a normal filling pattern. Right Ventricle Normal right ventricular cavity size and systolic function. Atria Both atria are normal in size. There is no evidence of interatrial shunt by agitated saline. There is no evidence of a patent foramen ovale. Aortic Valve Normal aortic valve structure and function. There is no aortic valve stenosis. There is no aortic valve regurgitation. Mitral Valve There is mild anterior and posterior mitral leaflet thickening. There is trace mitral valve regurgitation. There is no mitral valve stenosis. Pulmonic Valve The pulmonic valve was not well visualized. Tricuspid Valve Likely normal tricuspid valve structure and function. There is trace tricuspid valve regurgitation. The right ventricular systolic pressure is normal. The right ventricular systolic pressure is 24 mmHg. Normal right atrial pressure. There is no evidence of pulmonary hypertension. Great Vessels The pulmonary artery was not well visualized. There is mild dilatation of the ascending aorta measuring 3.80 cm. Venous The inferior vena cava is normal in size and collapses greater than 50% with inspiration. Pericardium/Pleural There is no evidence of pericardial effusion. Prior Study Comparison No prior study available for comparison. Measurements 2D Linear Measurements IVSd: 1.15 0.6-0.9/0.6-1.0 cm LVIDd: 4.78 3.9-5.3/4.2-5.9 cm LVIDd Index: 1.97 2.4-3.2/2.2-3.1 cm/m2 LVIDs: 2.96 2.0-3.6 cm LVPWd: 1.14 0.7-1.1 cm LA Diam: 3.40 2.7-3.8/3.0-4.0 cm LAIDs Index: 1.40 1.5-2.3 cm/m2 LV Mass: 253.95 67-162/88-224 g LV Mass Index: 104.50 43-95/49-115 g/m2 LVOT Diam: 2.20 3.0+(-)1.3 cm 2D Systolic Function EF 4C: 65.50 >55% EF 2C: 50.70 >55% EF BiP: 59.20 >55% Mitral Valve MV Pk E: 0.76 MV PK A: 0.59 MV Decel Time: 260.00 E/A: 1.30 E'Lateral: 7.18 E'Medial: 5.77 E/E' Med: 13.10 E/E' Lat: 10.50 PHT: 76.00 MVA PHT: 2.89 Decel [place]: 2.91 Aortic Valve AoV Pk Rip: 1.64 AoV Mn Rip: 1.15 AoV VTI: 0.32 AoV Pk Grad: 11.00 Aov Mn Grad: 6.00 SCOTT Cont.VTI: 2.23 LVOT LVOT Pk Rip: 0.97 LVOT Mn Rip: 0.72 LVOT VTI: 0.19 LVOT Pk Grad: 4.00 LVOT Mn Grad: 2.00 LVOT Diam: 2.20 LVOT Area: 3.80 Diastolic Function MV Pk E: 0.76 MV Pk A: 0.59 E/A: 1.30 E'Medial: 5.77 E/E' Med: 13.10 E' Laterial: 7.18 E/E' Lat: 10.50 Right Ventricle TAPSE (mm): 29.00 TVS' Rip: 15.90 Tricuspid Valve TR Pk Rip: 2.31 TR Pk Grad: 21.00 RA Press: 3.00 RVSP: 24.00 Great Vessels Aorta Sinus of Valsalva: 3.60 2.0-3.5 cm Ao Asc: 3.80 2.1-3.4 cm Ao Arch: 3.60 Pulmonary Valve PV Pk Rip: 1.09 Peak PV Grad: 5.00 Updated in Other Vendor System with Status of Final Pepito Rosas MD electronically signed on 02/26/2025 12:25:32 PM with status of Final
[2025-02-26 07:08] LABS: MANUAL DIFF FLAG NO
[2025-02-26 07:34] LABS: Hematocrit 43.0 % (42.0-52.0); Hemoglobin 14.6 g/dl (14.0-18.0); Imm Gran Abs Auto 0.03 X10*3/uL (0.00-0.03); Imm Gran Pct Auto 0.3 % (0.0-0.4); Lymphocytes Absolute Auto 2.9 X10*3/uL (1.2-4.9); Mean Corpuscular HGB Conc 34.0 g/dl (31.0-36.0); Mean Corpuscular Hemoglobin 32.7 pg (27.0-33.0); Mean Corpuscular Volume 96.2 fL (80.0-98.0); NRBC Abs Auto 0.000 X10*3/uL (0.0-0.012); NRBC Pct Auto 0.0 /100WBC (0.0-0.2); Platelet Count 211 X10*3/uL (160-400); Red Blood Count 4.47 X10*6/uL (4.60-5.80); White Blood Count 10.2 X10*3/uL (4.8-10.8)
[2025-02-26 07:45] LABS: Hemoglobin A1C 165.8535 umol/L; Total Hemoglobin (HGBA1C) 3833.2378 umol/L
[2025-02-26 07:46] LABS: Anion Gap 12 (12-20); Blood Urea Nitrogen 15 mg/dL (9-16); Calcium 9.1 mg/dL (8.4-10.2); Carbon Dioxide 25 mmol/L (22-29); Chloride 109 mmol/L (96-108); Cholesterol 201 mg/dL (<200); Creatinine Clr Calc Pharmacy 130.7; Estimated Glomerular Filt Rate > 60; HDL Cholesterol 24 mg/dL (>40); Potassium 4.1 mmol/L (3.3-5.1); Sodium 142 mmol/L (135-145); Triglycerides 177 mg/dL (<150)
[2025-02-26] MEDS: Aspirin Enteric Coated 81 MG TABLET.DR PO (08:52)
--- NOTE | 2025-02-26 09:36 | P.CNNE_ITS ---
History of Present Illness Data of Consult Service Date: 02/26/25 Primary Care Provider: Jean Pierre Hamlin MD HPI Reason for consult: Stroke 49 years old man who came to hospital with facial droop that started many days before he came to hospital. There was no associated cold or flu-like illness hearing change or headache or ear pain. He had multiple investigations which showed acute stroke and he was admitted. Review of Systems 2 Review of Systems: No headache or seizure-like episode or no cold or flu-like illness PMFSH Past Medical History Medical History Amputated great toe PVD (peripheral vascular disease) Diabetes Hypertension Social History Social History Household Members: None Unable to assess alcohol history related to: Unknown Alcohol intake: current Alcohol type: beer and hard liquor Patient Tobacco Use Status: Current everyday Tobacco user Tobacco use type: Cigarette Cigarettes Per Day: 6 Meds Allergies Allergy/AdvReac Type Severity Reaction Status Date / Time No Known Allergies Allergy Verified 02/25/25 09:48 Active Medications: Current Medications Acetaminophen (Acetaminophen 325 Mg Tablet) 650 mg PO Q6H PRN PRN Reason: Pain, Mild 1-3,fever,headache Aspirin (Aspirin Enteric Coated 81 Mg Tablet.) 81 mg PO DAILY [facility] Last Admin: 02/26/25 08:52 Dose: 81 mg Atorvastatin Calcium (Atorvastatin Calcium 40 Mg Tablet) 40 mg PO DAILY [facility] Last Admin: 02/26/25 08:52 Dose: 40 mg Calcium Carbonate (Calcium Carbonate 750 Mg Tab.Chew) 750 mg PO Q4H PRN PRN Reason: Heartburn Enoxaparin Sodium (Enoxaparin Sodium 40 Mg/0.4 Ml Syringe) 40 mg SUBCUT Q24H [facility] Last Admin: 02/25/25 14:54 Dose: 40 mg Magnesium Hydroxide (Milk Of Magnesia 30 Ml Oral.Susp) 30 ml PO DAILY PRN PRN Reason: Constipation Melatonin (Melatonin 3 Mg Tablet) 6 mg PO BEDTIME PRN PRN Reason: Insomnia Nicotine Polacrilex (Nicotine Polacrilex 2 Mg Gum) 2 mg BUCCAL Q1H PRN PRN Reason: Nicotine Cravings Last Admin: 02/25/25 18:34 Dose: 2 mg Ondansetron HCl (Ondansetron Hcl 4 Mg/2 Ml Vial) 4 mg IVPUSH Q8H PRN PRN Reason: Nausea and Vomiting Home Medications ?Medication ?Instructions ?Recorded ?Confirmed ?Last Taken ?Type No Known Home Meds 02/25/25 02/25/25 Un known History Physical Exam 2 Vital Signs: Vital Signs: Last Vital Signs Temp 97.1 F 02/26/25 07:42 Pulse 64 02/26/25 07:42 Resp 20 02/26/25 07:42 BP 140/78 H 02/26/25 07:42 Pulse Ox 100 02/26/25 07:42 O2 Del Method Room Air 02/26/25 07:42 BMI result Body Mass Index 35.1 Neuro: Other: He is alert and awake with normal spontaneity of speech fluency comprehension and flat affect. There was mild left hemiparesis. Deep tendon reflexes are absent with flexor plantars. Visual jones seem to be okay. Speech is okay. Results Labs 02/26/25 06:50 02/26/25 06:50 Labs: Short CBC 02/25/25 02/26/25 Range/Units 10:16 06:50 WBC 10.2 10.2 (4.8-10.8) X10*3/uL Hgb 15.0 14.6 (14.0-18.0) g/dl Hct 44.6 43.0 (42.0-52.0) % Plt Count 246 211 (160-400) X10*3/uL BMP 02/25/25 02/26/25 10:16 06:50 Sodium 144 142 Potassium 3.9 4.1 Chloride 110 H 109 H Carbon Dioxide 24 25 BUN 15 15 Creatinine 0.88 0.93 Calcium 9.3 9.1 Liver Function 02/25/25 Range/Units 10:16 Total Bilirubin 0.8 (0.0-1.0) mg/dL AST 22 (5-37) U/L ALT 30 (0-40) U/L Alkaline Phosphatase 103 (39-117) U/L Albumin 4.6 (3.5-5.0) g/dL MRI of brain revealed multiple area of restricted diffusion in right middle cerebral artery territory including cortical and subcortical areas. Carotid ultrasound did not reveal any extracranial carotid disease. EKG revealed sinus rhythm. Assessment and Plan (1) Cerebral infarction: Qualifiers: Cerebral infarction mechanism: embolism Precerebral and cerebral artery: middle cerebral artery Laterality of affected vessel: right Qualified Code(s): I63.411 - Cerebral infarction due to embolism of right middle cerebral artery Status: Acute 49 years old man with acute large multiple areas of right middle cerebral artery embolic looking ischemic infarction. Etiology could be middle cerebral artery disease or cardiac source of embolism. My recommendation is to have PT dictation for rehab, have CTA of brain to look at intracranial vasculature and for now treat him with aspirin 81+ clopidogrel 75 mg with control of other vascular risk factors. Procedures Date of Service Date of Service: 02/26/25
--- NOTE | 2025-02-26 10:59 | P.PNIM_ITS ---
Subjective Subjective Date of Service: 02/26/25 Interval History: Noted improvement in speech. Facial droop present Constitutional Constitutional: Reports no additional constitutional complaints Cardiovascular Cardiovascular: Reports no additional cardiovascular complaints Respiratory Respiratory: Reports no additional respiratory complaints Gastrointestinal Gastrointestinal: Reports no additional gastrointestinal complaints Genitourinary Genitourinary: Reports no additional male genitourinary complaints Neurologic Neurologic: Reports Abnormal speech present Physical Exam 2 Vital Signs: Vital Signs: Last Vital Signs Temp 97.1 F 02/26/25 07:42 Pulse 64 02/26/25 09:33 Resp 20 02/26/25 07:42 BP 140/78 H 02/26/25 09:33 Pulse Ox 100 02/26/25 09:33 O2 Del Method Room Air 02/26/25 07:42 BMI result Body Mass Index 35.1 Const: Other: Middle-aged male lying in bed in no distress Neck supple, no JVD Regular rate and rhythm, S1-S2 heard Regular breath sounds bilaterally, no wheezing or crackles appreciated Abdomen soft nontender, no guarding, no rigidity Patient is awake, alert and oriented to self, place, time and person, facial droop seen, no pronator drift, strength 5/5 in bilateral upper and lower extremity, no nystagmus, Psych: Normal mood No pedal edema Neuro: Speech: Abnormal speech present Objective Data Active Medications Acetaminophen (Acetaminophen 325 Mg Tablet) 650 mg PO Q6H PRN PRN Reason: Pain, Mild 1-3,fever,headache Aspirin (Aspirin Enteric Coated 81 Mg Tablet.) 81 mg PO DAILY [facility] Last Admin: 02/26/25 08:52 Dose: 81 mg Documented By: PETER Atorvastatin Calcium (Atorvastatin Calcium 40 Mg Tablet) 40 mg PO DAILY [facility] Last Admin: 02/26/25 08:52 Dose: 40 mg Documented By: PETER Calcium Carbonate (Calcium Carbonate 750 Mg Tab.Chew) 750 mg PO Q4H PRN PRN Reason: Heartburn Clopidogrel Bisulfate (Clopidogrel Bisulfate 75 Mg Tablet) 75 mg PO DAILY [facility] Enoxaparin Sodium (Enoxaparin Sodium 40 Mg/0.4 Ml Syringe) 40 mg SUBCUT Q24H [facility] Last Admin: 02/25/25 14:54 Dose: 40 mg Documented By: BLANKA Magnesium Hydroxide (Milk Of Magnesia 30 Ml Oral.Susp) 30 ml PO DAILY PRN PRN Reason: Constipation Melatonin (Melatonin 3 Mg Tablet) 6 mg PO BEDTIME PRN PRN Reason: Insomnia Metformin HCl (Metformin Hcl Er 500 Mg Tab.Er.24h) 500 mg PO BEDTIME MAGDALENE Nicotine Polacrilex (Nicotine Polacrilex 2 Mg Gum) 2 mg BUCCAL Q1H PRN PRN Reason: Nicotine Cravings Last Admin: 02/25/25 18:34 Dose: 2 mg Documented By: MARK Ondansetron HCl (Ondansetron Hcl 4 Mg/2 Ml Vial) 4 mg IVPUSH Q8H PRN PRN Reason: Nausea and Vomiting Labs 02/26/25 06:50 02/26/25 06:50 Labs: Laboratory Results - last 24 hr 02/26/25 06:50 MCV 96.2 MCH 32.7 MCHC 34.0 RDW 12.4 Plt Count 211 MPV 10.4 Immature Gran % (Auto) 0.3 Neut % (Auto) 63.3 Lymph % (Auto) 28.7 [place] % (Auto) 6.8 Eos % (Auto) 0.5 Baso % (Auto) 0.4 Lymph # (Auto) 2.9 [place] # (Auto) 0.7 Eos # (Auto) 0.1 Baso # (Auto) 0.0 Abs Immat Gran (auto) 0.03 Absolute Neuts (auto) 6.5 Absolute Nucleated RBC 0.000 Nucleated RBC % (auto) 0.0 Anion Gap 12 Estim Creat Clear Calc 130.7 Estimated GFR > 60 Random Glucose 108 Estimat Average Glucose 128 Hemoglobin A1c % 6.1 H Calcium 9.1 Triglycerides 177 H Cholesterol 201 H LDL Cholesterol, Calc 142 H HDL Cholesterol 24 L Assessment and Plan (1) Cerebral infarction: Status: Acute Plan This has a 49-year-old male with pertinent history of prediabetes, currently not on home prescription medications who presents to the emergency department for evaluation of difficulty with speech and facial droop. #. Acute right MCA territory infarct: Initiated dual antiplatelet therapy and high-intensity statin. Noted A1c 6.1. Initiated metformin. Transthoracic echocardiogram pending. CTA head and neck pending. Appreciate neurology DVT prophylaxis: Lovenox Full code Reason for continued hospitalization: Evaluation and management of acute CVA Quality Stroke Does the patient have a stroke diagnosis?: Yes Reason for No Anti-thrombotic by Day Two: N/A - Med Ordered VTE Prior VTE?: No VTE Risk Level:: Medical - moderate - high VTE Device Contraindication: Treatment Not Indicated VTE Drug Contraindication: N/A - Med Ordered
--- NOTE | 2025-02-26 13:14 | MHC.CM.PN ---
Addendum entered by Ashanti Hernandez 02/26/25 13:39: Pt has appt. with [facility], a new provider at what was Dr. Hamlin's office, on 03/26/25 at 10:00am, pt. has this info and said he plans to go to this appt. Original Note: Pt lives alone, his PCP was Dr Hamlin, he has not called to schedule with new provider, CM will assist pt. to do this. He does not have home health services, or use DME. He is able to arrange transport home at [place], DCP: home, self care, CM to follow for DC needs.
[2025-02-26] MEDS: iohexoL 350 MG/ML 100 ML INFUS..BTL IV (14:23)
--- NOTE | 2025-02-26 16:30 | MHC.STROKE ---
Met with patient in room 484. executive admin utilized for education. Stroke Education provided. Pamphlet given in [place] Medical history discussed including med hx, medications, social history, diet, activity. All questions answered. Will continue to assist as needed.
[2025-02-26] MEDS: Nicotine 14 MG PATCH.TD24 TRANSDERMA (23:17)
[2025-02-27 03:25] VITALS: BP 133/84; PULSE 66; RESP 20; TEMP 36.6; O2SAT 98
[2025-02-27 07:38] VITALS: BP 125/74; PULSE 68; RESP 20; TEMP 36.2; O2SAT 98
[2025-02-27] MEDS: Nicotine 14 MG PATCH.TD24 TRANSDERMA (08:09)
[2025-02-27] MEDS: Aspirin Enteric Coated 81 MG TABLET.DR PO (08:10)
--- NOTE | 2025-02-27 08:48 | PM.DS ---
DS: Providers Provider Date of Service: 02/27/25 Date of admission: 02/25/25 13:44 Date of discharge: 02/27/25 Primary care physician: Jean Pierre Hamlin MD Consults: 02/25/25 13:44 Consult to Neurology Routine Consulting Provider: [facility] Reason for consultation: ACute CVA DS: Diagnosis Discharge Diagnosis (1) Cerebral infarction: Status: Acute DS: Summary Hospital Course Hospital Course: HPI:This has a 49-year-old male with pertinent history of peripheral vascular disease status post toe amputation, prediabetes, currently not on home prescription medications who presents to the emergency department for evaluation of difficulty with speech and facial droop. Patient states he 1st noticed his symptoms 1 week ago. This has never happened before. Patient states that his friends noticed that he had facial droop. He also had difficulty with speech. Denies changes in vision. No extremity weakness. No trouble swallowing. No headache at this time. No fever, chills, chest pain, palpitations, shortness of breath, abdominal pain, changes in urinary or bowel habits. No history of irregular heart rhythm. He was seen in the ER on 02/14 for evaluation of headache, tingling in his toes, left arm, left leg and involuntary movement of left upper extremity. Patient's CTA head at that time was without any acute abnormality. In the emergency department, CT head with evolving right frontal and right basal ganglia infarcts. Hospital course: Patient was admitted on telemetry for evaluation and management of acute CVA. CTA with 55% stenosis of right MCA. Discussed with Neurology, this has significant due to area of infarct. Initiated dual antiplatelet therapy and high-intensity statin. Also noted A1c 6.1 and initiated metformin. Patient to follow-up as an outpatient for control of his vascular risk factors. Increase atorvastatin 40 to 80 mg subsequently if he tolerates for LDL goal less than 70. He was evaluated by Physical therapy and Occupational therapy who deemed the patient safe to be discharged home without any services. Patient was normal sinus rhythm throughout hospitalization. His echocardiogram was with normal EF and normal RV systolic pressure. Patient is hemodynamically stable to be discharged with close follow-up with PCP and Neurology. Patient to establish care with PCP after discharge. Status at Discharge Functional status at discharge: independent ambulation Overall status at discharge: patient is progressing back to baseline Time Attestation Discharge Coordination Time (in mins): Thirty-five Quality: Safe Use of Opioids Does Pt have an Active Cancer Diagnosis on the Problem List?: No Quality: Stroke Does the patient have a stroke diagnosis?: Yes Reason for No Anti-thrombotic at DC: N/A - Med Ordered Reason for No Anticoagulant at DC: Not indicated Reason Not Initiating IV-Tpa: Not indicated Reason for No Anti-thrombotic by Day Two: N/A - Med Ordered Reason for No Statin at DC: N/A - Med Ordered Physical Exam Vital Signs: Vital Signs: Last Vital Signs Temp 97.1 F 02/27/25 07:38 Pulse 68 02/27/25 07:38 Resp 20 02/27/25 07:38 BP 125/74 02/27/25 07:38 Pulse Ox 98 02/27/25 07:38 O2 Del Method Room Air 02/27/25 07:38 BMI result Body Mass Index 35.1 Const: Other: Middle-aged male lying in bed in no distress Neck supple, no JVD Regular rate and rhythm, S1-S2 heard Regular breath sounds bilaterally, no wheezing or crackles appreciated Abdomen soft nontender, no guarding, no rigidity Patient is awake, alert and oriented to self, place, time and person, facial droop seen, no pronator drift, strength 5/5 in bilateral upper and lower extremity, no nystagmus, Psych: Normal mood No pedal edema DS: Data Imaging MRI - head: Radiologist's impression: ITS Impressions Head CT 02/25/25 10:45 IMPRESSION: Evolving right frontal and right basal ganglia infarcts. These findings were discussed with Dr. Al in the emergency room on 02/25/2025 at 11:21 AM. Electronically signed by: Solomon Nicholas MD 02/25/2025 11:20 AM EDT RP Carotid Doppler Study 02/25/25 15:44 IMPRESSION: 1. RIGHT: No hemodynamically significant stenosis. Mild plaque is present in the carotid bulb. 2. LEFT: No hemodynamically significant stenosis. Electronically signed by: Reymundo Henderson MD 02/25/2025 04:36 PM EDT RP Head/Neck CTA 02/26/25 13:48 IMPRESSION: NONCONTRAST HEAD CT: Acute/subacute posterior right frontal and right basal ganglia infarct. CTA NECK: There is a hemodynamically significant stenosis of left vertebral artery at the level of C6-7 measuring at least 67%. CTA HEAD: Short focal 55% stenosis of the M1 division of the right MCA. Dr. Olsen notified via [place] Lack of filling of the left sigmoid sinus of uncertain significance. Contrast was injected from the left side and there is retrograde flow of contrast up the the mid left internal jugular vein which could be restricting outflow on that side. If there is concern for thrombosis, consider dedicated head CT venogram. Electronically signed by: Reymundo Henderson MD 02/26/2025 03:20 PM EDT RP Discharge Plan Discharge Anticipated Discharge Date/Time: 02/27/25 08:45 Patient Disposition: Home, Self-Care Discharge Diagnosis: Acute right MCA territory infarct Referrals: Jean Pierre Hamlin MD [Primary Care Provider, Internal Medicine] - 1 Week Discharge Medications: New atorvastatin 40 mg Tablet 40 mg PO DAILY 30 Days Qty: 30 0RF nicotine 14 mg/24 hr Patch 24 Hour 14 mg transdermal DAILY 10 Days Qty: 7 0RF nicotine (polacrilex) 2 mg Gum 2 mg buccal Q1H PRN (Reason: Nicotine Cravings) 10 Days Qty: 20 0RF clopidogrel 75 mg Tablet 75 mg PO DAILY 30 Days Qty: 30 0RF aspirin 81 mg Tablet,Delayed Release (Dr/Ec) 81 mg PO DAILY 30 Days Qty: 30 0RF metformin 500 mg Tablet Extended Release 24 Hr 500 mg PO BEDTIME 30 Days Qty: 30 0RF Discharge Orders: Discharge Order (Routine); Ordered 02/27/25 Ordered By: Maribeth Olsen Diet: Diabetic diet Activity on Discharge: As tolerated Stand Alone Forms: Patient Portal Discharge page Print Language: Citizen Of [place] Care Plan Goals: Follow-up with PCP within 1 week Follow-up with neurology outpatient Health Concerns: Acute right MCA territory infarct Tobacco use disorder Plan of Treatment: Aspirin 81 mg daily Plavix 75 mg daily Metformin 500 mg at bedtime (start: 03/01) Atorvastatin 40 mg daily Tobacco cessation Assessment: As above
--- NOTE | 2025-02-27 09:34 | MHC.CM.PN ---
Patient medically cleared for dc home self care via private transport.
== END 2025-02-27 10:27 | disposition home or self-care (01) | DRG 45 ==
LOC: HO.ED 13:38 → HO.EDOVER 13:54 → HO.IMC 15:40
PROVIDERS: Admitting Provider Student in an Organized Health Care Education/Training Program; Emergency Provider Emergency Medicine Emergency Medical Services; PCP Internal Medicine; Visit Provider Student in an Organized Health Care Education/Training Program
DX: I63.411 Cerebral infarction due to embolism of right middle cerebral artery (principal); E11.51 Type 2 diabetes mellitus with diabetic peripheral angiopathy without gangrene; F17.210 Nicotine dependence, cigarettes, uncomplicated; R29.701 NIHSS score 1; R29.810 Facial weakness; Z71.6 Tobacco abuse counseling; Z79.899 Other long term (current) drug therapy
CPT/HCPCS: 36415; 70450; 70496; 70498; 70551; 80048; 80053; 80061; 83036; 84484; 85025; 93005; 93306; 93880; 97162; 97165; 99285; J1650; Q9957; Q9967

== ENCOUNTER → 2025-02-25 10:06 | Outpatient (BNV) | payer OTHER, SELFPAY | PROVIDERS: Admitting Provider Student in an Organized Health Care Education/Training Program; Emergency Provider Emergency Medicine Emergency Medical Services; PCP Internal Medicine; Visit Provider Internal Medicine Cardiovascular Disease | DX: R94.31 Abnormal electrocardiogram [ECG] [EKG] (principal); R42 Dizziness and giddiness | CPT/HCPCS: 93010 ==

== ENCOUNTER → 2025-02-25 10:39 | Outpatient (BNV) | payer OTHER, SELFPAY | PROVIDERS: Emergency Provider Emergency Medicine Emergency Medical Services; PCP Internal Medicine; Visit Provider Radiology Diagnostic Radiology | DX: I63.311 Cerebral infarction due to thrombosis of right middle cerebral artery (principal); I63.89 Other cerebral infarction; I65.21 Occlusion and stenosis of right carotid artery | CPT/HCPCS: 70450; 70551 ==

== ENCOUNTER 2025-02-25 13:44 | Outpatient (BNV) | payer MEDICAID, SELFPAY | END 2025-02-26 13:48 | PROVIDERS: Admitting Provider Student in an Organized Health Care Education/Training Program; Emergency Provider Emergency Medicine Emergency Medical Services; PCP Internal Medicine; Visit Provider Radiology Diagnostic Radiology | DX: I63.81 Other cerebral infarction due to occlusion or stenosis of small artery (principal) | CPT/HCPCS: 70496; 70498 ==

== ENCOUNTER 2025-02-25 13:44 | Outpatient (BNV) | payer OTHER, SELFPAY | END 2025-02-26 07:00 | PROVIDERS: Admitting Provider Student in an Organized Health Care Education/Training Program; Emergency Provider Emergency Medicine Emergency Medical Services; PCP Internal Medicine; Visit Provider Internal Medicine Cardiovascular Disease | DX: I77.810 Thoracic aortic ectasia (principal) | CPT/HCPCS: 93306 ==

== ENCOUNTER → 2025-02-25 13:44 | Outpatient (BNV) | payer OTHER, SELFPAY | PROVIDERS: Admitting Provider Student in an Organized Health Care Education/Training Program; Emergency Provider Emergency Medicine Emergency Medical Services; PCP Internal Medicine; Visit Provider Student in an Organized Health Care Education/Training Program | DX: I63.411 Cerebral infarction due to embolism of right middle cerebral artery (principal) | CPT/HCPCS: 99222; 99232; 99239 ==

== ENCOUNTER → 2025-02-25 13:44 | Outpatient (BNV) | payer OTHER, SELFPAY | PROVIDERS: Admitting Provider Student in an Organized Health Care Education/Training Program; Emergency Provider Emergency Medicine Emergency Medical Services; PCP Internal Medicine; Visit Provider Psychiatry & Neurology Neurology | DX: I63.411 Cerebral infarction due to embolism of right middle cerebral artery (principal) | CPT/HCPCS: 99222 ==

== ENCOUNTER → 2025-03-26 09:34 | Outpatient (BNVA) | payer OTHER, SELFPAY | PROVIDERS: PCP Internal Medicine; Visit Provider Student in an Organized Health Care Education/Training Program | DX: M87.051 Idiopathic aseptic necrosis of right femur (principal); R73.03 Prediabetes; E78.3 Hyperchylomicronemia; F17.210 Nicotine dependence, cigarettes, uncomplicated; Z86.73 Personal history of transient ischemic attack (TIA), and cerebral infarction without residual deficits; Z79.02 Long term (current) use of antithrombotics/antiplatelets; Z79.82 Long term (current) use of aspirin; Z79.84 Long term (current) use of oral hypoglycemic drugs; Z79.899 Other long term (current) drug therapy; Z13.31 Encounter for screening for depression; Z13.39 Encounter for screening examination for other mental health and behavioral disorders | CPT/HCPCS: 96127; 99202 ==

== ENCOUNTER → 2025-03-26 09:34 | Outpatient (AMB) | payer MEDICAID, SELFPAY ==
--- NOTE | 2025-03-26 09:35 | MHC.PC.OV ---
Vital Signs 03/26/25 09:44 Height 6 ft 1 in Weight 260 lb BMI 34.3 BP 128/56 L Blood Pressure Location Rt brachial Position Sitting Respiration 18 Pulse 74 Pulse Source Pulse Oximeter Temp 97.3 F Temp Source Temporal Artery Scan Pulse Oximetry (%) 95 Oxygen Delivery Method Room Air Intake Visit Reasons: [facility] [place]u [place] Medical Parasitologist Required: Yes Allergies No Known Allergies Allergy (Verified 03/26/25 09:36) Tobacco use date assessed: 03/26/25 HPI HPI Comments History of Present Illness Details The patient is a 49-year-old male presenting for a follow-up after a recent cerebrovascular accident (stroke) that occurred at the start of this month. Initially, the patient reported the onset of symptoms with a persistent headache. The following morning, the patient noticed involuntary movements of the hand. Consequently, he was hospitalized and diagnosed with a stroke. While hospitalized, tests revealed he was prediabetic with an A1C of 6.1, and he was found to have elevated cholesterol levels. Prior to the stroke, the patient self-reported a history of slightly elevated blood pressure before 2019. Despite this, he was not on any antihypertensive treatment at that time. The recent hospitalization provided an initial diagnosis of prediabetes and hyperlipidemia, alongside the stroke. The patient's cholesterol levels remain high, prompting an increase in the dose of his cholesterol medications. The patient also disclosed a history of toe amputation and mild, untreated hypertension. His recent medical evaluations included no changes or adjustments to his diabetes medication. The patient experiences hip pain, which he previously had evaluated in [place], and was advised for hip replacement due to significant discomfort and impact on his quality of life. However, no surgical intervention has yet occurred. The patient's lifestyle factors include sedentary activity levels, which have been addressed to correct through increased physical activity and dietary modifications, such as reducing intake of red meats and salt, to manage both diabetes and cholesterol levels effectively. Medical History: - Cerebrovascular Accident (Stroke) in current month - Prediabetes - Hyperlipidemia with high LDL - Mild Hypertension before 2019 - History of long-term smoking - Hip joint discomfort requiring consideration of replacement Surgical History: - Amputation of the toe Medications: - Metformin for blood sugar management - Atorvastatin for cholesterol management - Aspirin as antiplatelet therapy - Plavix (Clopidogrel) as antiplatelet therapy Family History: - Mother with diabetes - Uncle with heart disease Social History: - Former smoker with a 20-year history, about a third pack per day - Ceased alcohol consumption post-discharge - Expressed interest in joining a gym for weight lifting and general fitness - Working life affected by recent stroke; financial stress and need for social work assistance for housing and employment reintegration [facility] Medical History (Updated 03/26/25 @ 10:30 by Good Pop MD) Prediabetes Hyperlipidemia Amputated great toe PVD (peripheral vascular disease) Diabetes Hypertension Social History Household Members: None Housing: House Unable to assess alcohol history related to: Unknown Alcohol intake: current Alcohol type: beer and hard liquor Patient Tobacco Use Status: Former Tobacco user Tobacco use type: Cigarette Cigarettes Per Day: 6 e-Cigarette/Vaping Use: Never Used service: No Questionnaire PHQ-9 Over the last 2 weeks, how often have you been bothered by any of the following problems? 1. Little interest or pleasure in doing things: not at all 2. Feeling down, depressed, or hopeless: not at all 3. Trouble falling or staying asleep, or sleeping too much: not at all 4. Feeling tired or having little energy: not at all 5. Poor appetite or overeating: not at all 6. Feeling bad about yourself - or that you are a failure or have let yourself or your family down: not at all 7. Trouble concentrating on things, such as reading the newspaper or watching television: not at all 8. Moving or speaking so slowly that other people could have noticed. Or the opposite - being so fidgety or restless that you have been moving around a lot more than usual: not at all 9. Thoughts that you would be better off or of hurting yourself in some way: not at all Total score: 0 Depression Screening Interpretation: Negative Depression Screening Done: Yes 79886 - PHQ-9 Billing: Yes Source: Developed by Drs. Solomon Rivera, Payton Chung, Germain Crowell and colleagues, with an educational yoon from [employer]. Thrive Questionnaire Date Thrive assessed: 02/26/25 I am a: Patient What is your living situation today?: I have a place to live, but I am worried about losing it in the future Within the past 12 months, did the food you bought not last and you didn't have the money to get more?: Never true Within the past 12 months, did you worry whether your food would run out before you got money to buy more?: Never true Do you have trouble paying for medicines?: No Do you have trouble getting transportation to medical appointments?: No Do you have trouble taking care of your child, family member or friend?: No Do you have trouble with day-to-day activities such as bathing, preparing meals, shopping, managing finances, etc.?: No Are you currently unemployed and looking for a job?: No Are you interested in more education?: No Please select the resources that you would like help with: Housing/Intermediate THRIVE Score: 1 AUDIT C Alcohol Use Questionnaire (AUDIT-C) 1. How often do you have a drink containing alcohol?: Never 3. How often do you have six or more drinks on one occasion?: Never Total Score: 0 Score Reviewed/Action Taken: Yes CHRISS-7 AMB Questionnaire CHRISS-7 Date CHRISS - 7 assessed: 03/26/25 Feeling nervous, anxious, or on edge: 0 = Not at all Not being able to stop or control worryin = Not at all Worrying too much about different things: 0 = Not at all Trouble relaxin = Not at all Being so restless that it is hard to sit still: 0 = Not at all Becoming easily annoyed or irritable: 0 = Not at all Feeling afraid as if something awful might happen: 0 = Not at all Total CHRISS-7 score (0-4 normal; 5-9 mild; 10-14 moderate; 15-21 severe): 0 Source: Developed by Drs. Solomon Rivera, Payton Chung, Germain Crowell and colleagues, with an educational yoon from [employer]. CHRISS-7 Assessment Billing CHRISS-7 Assessment Tool: CHRISS-7 Assessment 16473 Review of Systems Const Details: - General: Denies nausea and vomiting - Cardiovascular: Denies chest pain - Respiratory: Denies shortness of breath - Neurological: Reports history of involuntary hand movements; denies headaches or vision loss, except mild blurriness - Psychiatric: Denies feeling depressed - Musculoskeletal: Reports hip pain and discomfort All systems reviewed & are unremarkable except as noted in HPI and below Physical exam (Primary Care) Vital Signs: Last Vital Signs Temp 97.3 F 03/26/25 09:44 Pulse 74 03/26/25 09:44 Resp 18 03/26/25 09:44 BP 128/56 L 03/26/25 09:44 Pulse Ox 95 03/26/25 09:44 Oxygen Delivery Method Room Air 03/26/25 09:44 BMI result Body Mass Index 34.3 Tobacco/Smoking Status: Tobacco use Status Tobacco use date assessed 03/26/25 03/26/25 09:39 Patient Tobacco Use Status Former Tobacco user 03/26/25 09:49 Tobacco use type Cigarette 03/26/25 09:39 e-Cigarette/Vaping Use Never Used 03/26/25 09:49 Depression Screening Interpretation: Negative Thrive Assessment: Date of Thrive Assessment Date Thrive assessed 02/26/25 03/26/25 09:39 Const Other: General: +Alert and oriented, Well nourished, No acute distress. Eye: Pupils are equal, round and reactive to light, Intact accommodation, Extraocular movements are intact, Normal conjunctiva, Vision slightly blurry. HENT: Normocephalic, Atraumatic, Tympanic membranes are clear, Normal hearing, Oral mucosa is moist, No pharyngeal erythema, Ear canals patent. Respiratory: Lungs CTA bilaterally, No wheeze, Respirations are non-labored. Cardiovascular: Regular rate, Regular rhythm, S1 auscultated, S2 auscultated, No murmur, Good pulses equal in all extremities, Normal peripheral perfusion, No edema. Gastrointestinal: Soft, Non-tender, Non-distended, Normal bowel sounds, No organomegaly. Musculoskeletal: Normal range of motion, Normal strength, No tenderness, No swelling, No deformity, Normal gait. Integumentary: Warm, Dry, [place], Intact. Neurologic: Alert, Oriented, Normal sensory, Normal motor function, No focal defects, Cranial Nerves II-XII are grossly intact, Normal deep tendon reflexes. Psychiatric: Cooperative, Appropriate mood & affect, Normal judgment. 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 Was subsequently found to have 55% stenosis of his MCA (right). Subsequently started on dual antiplatelet therapy and high-intensity statin. No weakness on exam however reinforced living healthy lifestyle with patient Code(s): I63.9 - Cerebral infarction, unspecified Category: Medical Qualifiers: Laterality of affected vessel: right CVA mechanism: embolism Precerebral and cerebral artery: anterior cerebral artery Qualified Code(s): I63.421 - Cerebral infarction due to embolism of right anterior cerebral artery Plan: Continue aspirin 81 mg daily Continue Plavix 75 mg daily (2) Hyperlipidemia: Comment: Lipid panel obtain your hospitalization showed an elevated LDH and triglycerides and was started on atorvastatin 40. Given his high-risk escalated dose to atorvastatin 80 mg daily and reinforced a healthy lifestyle Code(s): E78.5 - Hyperlipidemia, unspecified Category: Medical Qualifiers: Hyperlipidemia type: hyperchylomicronemia Qualified Code(s): E78.3 - Hyperchylomicronemia Plan: . Atorvastatin 40 mg daily Start atorvastatin 80 mg daily (3) Prediabetes: Comment: A1c during hospitalization at 6.1 and subsequently started on metformin 500 mg daily. We will continue metformin for now and re-evaluate at next follow-up if he requires continued treatment Code(s): R73.03 - Prediabetes Category: Medical Plan: Continue metformin 500 mg daily (4) Tobacco use disorder: Code(s): F17.200 - Nicotine dependence, unspecified, uncomplicated Plan: Twenty pack-year smoking history therefore we will obtain lung cancer screening (5) Avascular necrosis of right femoral head: Comment: Known avascular necrosis of the hip unknown etiology we will obtain imaging and refer to orthopedic surgery for possible surgical intervention Code(s): M87.051 - Idiopathic aseptic necrosis of right femur Category: Medical Plan I discussed the current state of the patient's post-stroke management, emphasizing the importance of adherence to prescribed antiplatelet therapies and the potential benefits of increased physical activity and dietary changes. I highlighted the significance of managing hyperlipidemia through an augmented atorvastatin regimen and addressed the patient's query about suitable dietary components to assist in their weight management. The patient's case history and examination findings warranted inclusion of hip pain management, for which referral to orthopedics was advised. I discussed cardiovascular risk reduction strategies, including lung and colon screenings. A commitment to follow-up in six months was noted, and the opportunity for additional referrals and interventions, including vision evaluation, was confirmed as necessary. 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 - Idiopathic aseptic necrosis of right femur Medications: New atorvastatin (Lipitor) 80 mg PO BEDTIME 90 tabs 0RF 90 days Changed From clopidogrel 75 mg PO DAILY 30 days 30 tabs 0RF To clopidogrel 75 mg PO DAILY 90 tabs 0RF 90 days From metformin ER 500 mg PO BEDTIME 30 days 30 tabs 0RF To metformin ER 500 mg PO BEDTIME 90 tabs 0RF 90 days From aspirin 81 mg PO DAILY 30 days 30 tabs 0RF To aspirin 81 mg PO DAILY 90 tabs 0RF 90 days Discontinued atorvastatin Discontinued Reason: Doctor's Order 40 mg PO DAILY 30 days 30 tabs 0RF Patient Instructions: - Take medications as prescribed and do not miss any doses. - Increase physical activity gradually, including safe gym workouts. - Follow a diet low in red meat and salt. - Keep track of any new symptoms and changes. - Attend all recommended follow-up appointments and screenings. - Contact a social work manager for assistance with rent and job concerns. - Seek care if any new or worsening symptoms occur.
[2025-03-26 09:44] VITALS: BP 128/56; PULSE 74; RESP 18; TEMP 36.3; O2SAT 95; BMI 34.3
--- OUTSIDE RECORDS SUMMARY | 2025-03-26 10:19 | XMS_ITS | Clinical Summary ---
Author Organization [employer] Address [address] [place] [address] Care Team Providers Care Gateman Name Role Phone Unavailable Primary Care Provider [...]
--- OUTSIDE RECORDS SUMMARY | 2025-03-26 10:19 | XMS_ITS | Patient Health Record ---
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 No Points 0 Interpretation Negative Plan Of Treatment No Information
== END ==
PROVIDERS: PCP Student in an Organized Health Care Education/Training Program; Visit Provider Student in an Organized Health Care Education/Training Program
DX: I63.421 Cerebral infarction due to embolism of right anterior cerebral artery (principal); M87.051 Idiopathic aseptic necrosis of right femur; E78.3 Hyperchylomicronemia; R73.03 Prediabetes; F17.200 Nicotine dependence, unspecified, uncomplicated